=== PATIENT | male | born 1980 | race Caucasian/White ===

== ENCOUNTER 2017-05-31 21:52 | Emergency (ER) | payer OTHER ==
[2017-05-31] MEDS ORDERED: LIDOCAINE 1% INJ-PF (10 MG/ML) 30 ML SDV ONE (23:39)
[2017-05-31] MEDS ORDERED: ONDANSETRON 4 MG TAB.RAPDIS PO ONE (23:49)
[2017-05-31] MEDS ORDERED: IBUPROFEN 600 MG TABLET PO ONE (23:49)
[2017-05-31] MEDS ORDERED: MORPHINE SULFATE IR 15 MG TABLET PO ONE (23:49)
[2017-05-31] MEDS ORDERED: ACETAMINOPHEN 325 MG TABLET PO ONE (23:49)
[2017-05-31] MEDS ORDERED: LIDOCAINE 1%/EPINEPHRINE INJ 20 ML VIAL INJ ONE (23:50)
[2017-05-31] MEDS ORDERED: CLINDAMYCIN HCL 150 MG CAPSULE PO ONE (23:50)
[2017-05-31] MEDS ORDERED: DEXAMETHASONE 4 MG TABLET PO ONE (23:55)
--- NOTE | 2017-05-31 23:55 | ER Document Report ---
ED General - General Chief Complaint: Facial Swelling Stated Complaint: TOOTHACHE Time Seen by Provider: 05/31/17 23:17 Notes: Patient is there are 36-year-old male visiting from out of town who presents with 48 hours of progressively worsening swelling and pain to the right side of his face from a dental infection. Patient notes that he had a dental infection for the past several days, is scheduled to see a dentist when he returns to [place] but that several days ago he began to develop facial swelling, difficulty opening his mouth and severely worsening pain to the affected areas. He notes a dull, constant, throbbing pain that is worsened by any attempt to eating or drinking. He has not tried anything to improve his symptoms. He denies a history of similar symptoms in the past. He denies any difficulty breathing or swallowing, and denies any headache, confusion or fever. TRAVEL OUTSIDE OF THE [place] IN LAST 30 DAYS: No - Related Data Allergies/Adverse Reactions: No Known Allergies Allergy (Verified 11/18/15 16:14) Past Medical History - General Information source: Patient - Social History Smoking Status: Current Every Day Smoker Frequency of alcohol use: None Drug Abuse: None Lives with: Family Family History: Reviewed & Not Pertinent Renal/ Medical History: Reports: Hx Kidney Stones Psychiatric Medical History: Reports: Hx Bipolar Disorder - Immunizations Hx Diphtheria, Pertussis, Tetanus Vaccination: Yes Review of Systems - Review of Systems Notes: Constitutional: Negative for fever. HENT: Positive for right-sided facial swelling and poor dentition Eyes: Negative for visual changes. Cardiovascular: Negative for chest pain. Respiratory: Negative for shortness of breath. Gastrointestinal: Negative for abdominal pain, vomiting or diarrhea. Genitourinary: Negative for dysuria. Musculoskeletal: Negative for back pain. Skin: Negative for rash. Neurological: Negative for headaches, weakness or numbness. 10 point ROS negative except as marked above and in HPI. Physical Exam - Vital signs Vitals: Temp Pulse Resp BP Pulse Ox 98.1 F 87 16 129/89 H 100 05/31/17 22:22 05/31/17 22:22 05/31/17 22:22 05/31/17 22:22 05/31/17 22:22 Interpretation: Normal Notes: PHYSICAL EXAMINATION: GENERAL: Appears uncomfortable but in no acute distress HEAD: Atraumatic, normocephalic. EYES: Pupils equal round and reactive to light, extraocular movements intact, sclera anicteric, conjunctiva are normal. ENT: nares patent, poor dentition throughout. There is mild swelling over the right cheek. No narrowing of the posterior pharynx. There is an apical abscess overlying tooth #4. NECK: Normal range of motion, supple without lymphadenopathy LUNGS: Breath sounds clear to auscultation bilaterally and equal. No wheezes rales or rhonchi. HEART: Regular rate and rhythm without murmurs ABDOMEN: Soft, nontender, normoactive bowel sounds. No guarding, no rebound. No masses appreciated. EXTREMITIES: Normal range of motion, no pitting or edema. No cyanosis. NEUROLOGICAL: No focal neurological deficits. Moves all extremities spontaneously and on command. PSYCH: Normal mood, normal affect. SKIN: Warm, Dry, normal turgor, no rashes or lesions noted. Course - Re-evaluation Re-evalutation: 05/31/17 23:54 Patient presents with facial swelling and an obvious apical abscess overlying tooth #4. The patient has poor dentition throughout, multiple missing teeth and virtually all of his remaining teeth have deep dental caries and partial fractures. There is no evidence of airway compromise, patient was able to speak in clear voice, no difficulty swallowing. The apical abscess was anesthetized with 1% lidocaine and then opened with an 18-gauge needle. Approximately 5 cc of purulent expression was obtained. Patient will be started on clindamycin for the next 10 days and has been clearly instructed on the need to follow-up closely with dentistry. Strict return precautions have been discussed at length. At this time will discharge with return precautions and follow-up recommendations. Verbal discharge instructions given a the bedside and opportunity for questions given. Medication warnings reviewed. Patient is in agreement with this plan and has verbalized understanding of return precautions and the need for dentistry follow-up in the next 24-72 hours. - Vital Signs Vital signs: Temp Pulse Resp BP Pulse Ox 98.1 F 83 18 146/90 H 100 05/31/17 22:22 06/01/17 00:19 06/01/17 00:19 06/01/17 00:19 06/01/17 00:19 Procedures - Incision and Drainage Dental abscess Type: Simple Anesthetic type: 1% Lidocaine mL's of anesthetic: 1 Blade size: Other - 18-gauge needle Incision Method: Incision made with needle Amount/type of drainage: 5 cc of purulent expression from an apical abscess overlying tooth #4 Discharge - Discharge Clinical Impression: Apical abscess, Dental caries, Facial swelling Condition: Good Disposition: HOME, SELF-CARE Additional Instructions: Your seen today for a dental infection with an associated dental abscess. The abscess was drained with a needle take antibiotics and have your dentist remove all of your upper teeth as they are all infected. Please take all the antibiotics until completion. You may use the Zofran that you have been sent home with as needed for nausea and the Cucumber for pain. In addition to the Cucumber please take ibuprofen 600 mg every 6 hours. Apply an ice pack to the affected area of your face 20 minutes every 2 hours to help reduce the swelling and pain. Return to the emergency department immediately if you develop a fever , difficulty breathing, difficulty swallowing, worsening of your facial swelling , progressive worsening of your pain, or any other symptoms that are worrisome to you. Prescriptions: Clindamycin HCl 300 mg PO TID #30 capsule
[2017-06-01 00:34] VITALS: BP 146/90
== END 2017-06-01 00:34 | disposition home or self-care (01) ==
LOC: ER 21:52
PROC: 0C9WXZ0 Drainage of Upper Tooth, External Approach, Single (ICD-10-PCS; principal; 2017-05-31)
DX: K04.7 Periapical abscess without sinus (principal); K02.9 Dental caries, unspecified; F17.200 Nicotine dependence, unspecified, uncomplicated; Z87.442 Personal history of urinary calculi
CPT/HCPCS: 99283; 41800; S0119; J3490

== ENCOUNTER 2017-08-22 13:33 | Inpatient (IN) | payer OTHER ==
[2017-08-22] MEDS ORDERED: NORMAL SALINE 1000 ML 1,000 ML IV ONE ×2 (14:42→16:50)
[2017-08-22] MEDS ORDERED: ONDANSETRON 4 MG TAB.RAPDIS PO ONE (14:43)
--- NOTE | 2017-08-22 14:45 | ER Document Report ---
ED General - General Chief Complaint: Nausea/Vomiting Stated Complaint: VOMITING Time Seen by Provider: 08/22/17 14:42 Mode of Arrival: Ambulatory Information source: Patient Notes: 36-year-old male presents emergency department with complaints of nausea, vomiting, diffuse muscle cramping. Patient states that this is been going on for the last day. Patient thought he was dehydrated and so he started consuming increased fluids. Patient states that he is still having the nausea and vomiting. He denies any chest pain, shortness of breath, abdominal pain, diarrhea, constipation. He denies any sick contacts. Patient denies any past medical history. He is not on any medications. TRAVEL OUTSIDE OF THE [place] IN LAST 30 DAYS: No - HPI Onset: Yesterday Onset/Duration: Gradual Quality of pain: No pain Severity: None Pain Level: Denies Associated symptoms: Nausea, Vomiting Exacerbated by: Denies Relieved by: Denies Similar symptoms previously: No Recently seen / treated by doctor: No - Related Data Allergies/Adverse Reactions: No Known Allergies Allergy (Verified 08/22/17 13:34) Past Medical History - Social History Smoking Status: Current Every Day Smoker Family History: Reviewed & Not Pertinent Renal/ Medical History: Reports: Hx Kidney Stones Psychiatric Medical History: Reports: Hx Bipolar Disorder - Immunizations Hx Diphtheria, Pertussis, Tetanus Vaccination: Yes Review of Systems - Review of Systems Constitutional: No symptoms reported EENT: No symptoms reported Cardiovascular: No symptoms reported Respiratory: No symptoms reported Gastrointestinal: Nausea, Vomiting Genitourinary: No symptoms reported Male Genitourinary: No symptoms reported Musculoskeletal: Muscle pain Skin: No symptoms reported Hematologic/Lymphatic: No symptoms reported Neurological/Psychological: No symptoms reported -: Yes All other systems reviewed and negative Physical Exam - Vital signs Vitals: Temp Pulse Resp BP Pulse Ox 99.1 F 102 H 22 H 130/84 H 95 08/22/17 13:38 08/22/17 13:38 08/22/17 13:38 08/22/17 13:38 08/22/17 13:38 Interpretation: Normal, Tachycardic - Notes Notes: PHYSICAL EXAMINATION: GENERAL: Well-appearing, well-nourished and in no acute distress. HEAD: Atraumatic, normocephalic. EYES: Pupils equal round and reactive to light, extraocular movements intact, sclera anicteric, conjunctiva are normal. ENT: Nares patent, oropharynx clear without exudates. Moist mucous membranes. NECK: Normal range of motion, supple without lymphadenopathy LUNGS: Breath sounds clear to auscultation bilaterally and equal. No wheezes rales or rhonchi. HEART: Regular rate and rhythm without murmurs ABDOMEN: Soft, nontender, nondistended abdomen. No guarding, no rebound. No masses appreciated. Musculoskeletal: Normal range of motion, no pitting or edema. No cyanosis. NEUROLOGICAL: Cranial nerves grossly intact. Normal speech, normal gait. Normal sensory, motor exams PSYCH: Normal mood, normal affect. SKIN: Warm, Dry, normal turgor, no rashes or lesions noted. Course - Vital Signs Vital signs: Temp Pulse Resp BP Pulse Ox 97.5 F 64 16 136/91 H 100 08/22/17 17:25 08/22/17 17:25 08/22/17 17:25 08/22/17 17:25 08/22/17 17:25 - Laboratory Result Diagrams: 08/22/17 15:15 08/22/17 16:05 Laboratory results interpreted by me: 08/22/17 08/22/17 08/22/17 15:15 16:05 16:05 Hgb 17.7 H Hct 51.7 H MCV 100 H MCH 34.2 H RDW 17.4 H Plt Count 127 L Sodium 145.9 H Chloride 97 L BUN 24 H Creatinine 2.46 H Est GFR ( Amer) 36 L Est GFR (Non-Af Amer) 30 L Phosphorus Total Bilirubin 1.4 H Direct Bilirubin 0.7 H AST 202 H ALT 213 H Creatine Kinase 195 H Total Protein 9.6 H Salicylates < 1.0 L Acetaminophen < 10 L 08/22/17 16:05 Hgb Hct MCV MCH RDW Plt Count Sodium Chloride BUN Creatinine Est GFR ( Amer) Est GFR (Non-Af Amer) Phosphorus 6.2 H Total Bilirubin Direct Bilirubin AST ALT Creatine Kinase Total Protein Salicylates Acetaminophen Discharge - Discharge Clinical Impression: Thrombocytopenia, Elevated liver enzymes Renal failure Qualifiers: Renal failure chronicity: acute Acute renal failure type: unspecified Qualified Code(s): N17.9 - Acute kidney failure, unspecified Condition: Stable Disposition: ADMITTED INPATIENT Admitting Provider: Hospitalist Unit Admitted: Telemetry
[2017-08-22 15:33] LABS: ABSOLUTE LYMPHOCYTES (AUTO) 1.2 10^3/uL (0.5-4.7); ABSOLUTE MONOCYTES (AUTO) 0.6 10^3/uL (0.1-1.4); ABSOLUTE NEUT (AUTO) 4.1 10^3/uL (1.7-8.2); BASOPHILS % (AUTO) 0.8 % (0-2); EOSINOPHILS % (AUTO) 0.1 % (0-6); HEMATOCRIT 51.7 % (37.9-51.0); HEMOGLOBIN 17.7 g/dL (13.5-17.0); MEAN CORPUSCULAR HEMOGLOBIN 34.2 pg (27.0-33.4); MEAN CORPUSCULAR HGB CONC 34.3 g/dL (32.0-36.0); MEAN CORPUSCULAR VOLUME 100 fl (80-97); MONOCYTES % (AUTO) 9.4 % (3-13); RED BLOOD COUNT 5.18 10^6/uL (4.35-5.55); RED CELL DISTRIBUTION WIDTH 17.4 % (11.5-14.0); SEGMENTED NEUTROPHILS % (AUTO) 69.7 % (42-78); TOTAL CELLS COUNTED % (AUTO) 100 %; WHITE BLOOD COUNT 5.9 10^3/uL (4.0-10.5)
[2017-08-22 15:50] LABS: PLATELET COUNT 127 10^3/uL (150-450)
[2017-08-22 16:42] LABS: ALANINE AMINOTRANSFERASE 213 U/L (21-72); ALKALINE PHOSPHATASE 91 U/L (38-126); ANION GAP 19 (5-19); ASPARTATE AMINO TRANSFERASE 202 U/L (17-59); BILIRUBIN,DIRECT 0.7 mg/dL (0.0-0.4); BILIRUBIN,TOTAL 1.4 mg/dL (0.2-1.3); BLOOD UREA NITROGEN 24 mg/dL (7-20); CALCIUM 10.1 mg/dL (8.4-10.2); CARBON DIOXIDE 30 mmol/L (22-30); CHLORIDE 97 mmol/L (98-107); CREATINE KINASE 195 U/L (55-170); GLUCOSE 86 mg/dL (75-110); LIPASE 289.1 U/L (23-300); POTASSIUM 4.4 mmol/L (3.6-5.0); SODIUM 145.9 mmol/L (137-145); TOTAL PROTEIN 9.6 g/dL (6.3-8.2)
[2017-08-22] MEDS ORDERED: MAG HYDROX/AL HYDROX/SIMETH SUSP 30 ML UDCUP PO PRN (17:25)
[2017-08-22] MEDS ORDERED: IPRATROPIUM/ALBUTEROL 0.5-2.5 MG/3 ML AMPUL NEB PRN (17:25)
[2017-08-22] MEDS ORDERED: MAGNESIUM HYDROXIDE SUSP 30 ML UDCUP PO PRN (17:25)
[2017-08-22] MEDS ORDERED: METOCLOPRAMIDE HCL INJ/PF 10 MG/2 ML SDV IV ONE (17:25)
[2017-08-22] MEDS ORDERED: DIAZEPAM INJ 10 MG/2 ML DISP.SYRIN IV ONE (17:25)
[2017-08-22 17:45] LABS: PHOSPHORUS 6.2 mg/dL (2.5-4.5)
[2017-08-22 17:46] LABS: PROTHROMBIN TIME 13.7 SEC (11.4-15.4)
[2017-08-22 17:48] LABS: ACETAMINOPHEN < 10 ug/mL (10-30); ALCOHOL < 10 mg/dL (NONE DETECTED); SALICYLATE < 1.0 mg/dL (2.0-20.0)
[2017-08-22] MEDS ORDERED: LORAZEPAM INJ 2 MG/1 ML VIAL IV PRN (19:02)
[2017-08-22] MEDS ORDERED: NICOTINE 14 MG/24 HR PATCH.TD24 TD PRN (19:43)
[2017-08-22] MEDS ORDERED: THIAMINE HCL 100 MG, FOLIC ACID 1 MG in NORMAL SALINE 250 ML IV SCH (20:00)
[2017-08-22] MEDS: HEPARIN SOD (PORCINE) 5,000 UNIT/ML 1 ML SYRINGE SUBCUT SCH (21:01)
[2017-08-22] MEDS: DEXTROSE 5%-1/2 NORMAL SALINE 1,000 ML IV PRN (22:20)
[2017-08-22] MEDS: DOCUSATE SODIUM 100 MG CAPSULE PO SCH (22:20)
[2017-08-22] MEDS: DIAZEPAM 5 MG TABLET PO PRN (22:32)
[2017-08-23] MEDS: IPRATROPIUM/ALBUTEROL 0.5-2.5 MG/3 ML AMPUL NEB SCH ×4 (00:04→23:36)
--- NOTE | 2017-08-23 03:08 | PDOC H&P ---
History of Present Illness Admission Date/PCP: 08/22/17 18:11 Patient complains of: Muscle cramping, nausea vomiting History of Present Illness: AYDEE COLLIER is a 36 year old male with a past medical history of bipolar formally on trazodone, lithium and alcohol dependence. Patient presents after 24 hours of excessive work related heat exposure resulting in fatigue, nausea with vomiting of gastric content and muscle cramping. Patient is unable to tolerate p.o. prompting seek evaluation emergency room where he is found to have dehydration, hypernatremia and acute renal failure. He receives symptomatic management, and IV fluid challenge and referred to the hospitalist for admission. Patient denies recent medication use, excessive caffeine or energy drinks but admits ongoing alcohol dependence of 120 ounces of malt liquor per day. Past Medical History Psychiatric Medical History: Reports: Alcohol Dependency, Bipolar Disorder Social History Information Source: Patient, [facility] Records Smoking Status: Current Every Day Smoker Cigarettes Packs Per Day: 1 Number of Years Smokin Frequency of Alcohol Use: Heavy Hx Recreational Drug Use: Yes Drugs: Marijuana Hx Prescription Drug Abuse: No - Advance Directive Resuscitation Status: Full Code Family History Family History: Hypertension Parental Family History Reviewed: Yes Children Family History Reviewed: Yes Sibling(s) Family History Reviewed.: Yes Medication/Allergy Home Medications: Ranitidine HCl [Heartburn Relief 150] 150 mg PO BIDP PRN 08/22/17 Allergies/Adverse Reactions: No Known Allergies Allergy (Verified 08/22/17 19:42) Review of Systems Constitutional: ABSENT: chills, fever(s), headache(s), weight gain, weight loss Eyes: ABSENT: visual disturbances Ears: ABSENT: hearing changes Cardiovascular: ABSENT: chest pain, dyspnea on exertion, edema, orthropnea, palpitations Respiratory: ABSENT: cough, hemoptysis Gastrointestinal: ABSENT: abdominal pain, constipation, diarrhea, hematemesis, hematochezia, nausea, vomiting Genitourinary: ABSENT: dysuria, hematuria Musculoskeletal: ABSENT: joint swelling Integumentary: ABSENT: rash, wounds Neurological: ABSENT: abnormal gait, abnormal speech, confusion, dizziness, focal weakness, syncope Psychiatric: ABSENT: anxiety, depression, homidical ideation, suicidal ideation Endocrine: ABSENT: cold intolerance, heat intolerance, polydipsia, polyuria Hematologic/Lymphatic: ABSENT: easy bleeding, easy bruising Physical Exam Vital Signs: Temp Pulse Resp BP Pulse Ox 98.3 F 62 16 125/87 H 98 08/22/17 20:01 08/23/17 00:05 08/23/17 00:05 08/22/17 20:01 08/22/17 20:01 Intake & Output 08/21/17 08/22/17 08/23/17 11:59 11:59 11:59 Weight 75.7 kg General appearance: PRESENT: no acute distress, cooperative, well-developed, well-nourished. ABSENT: disheveled, hard of hearing Head exam: PRESENT: atraumatic, normocephalic Eye exam: PRESENT: conjunctiva pink, EOMI, PERRLA. ABSENT: scleral icterus Ear exam: PRESENT: normal external ear exam Mouth exam: PRESENT: dry mucosa, neck supple, tongue midline. ABSENT: laceration Teeth exam: ABSENT: dental caries, dental tenderness Neck exam: ABSENT: carotid bruit, JVD, lymphadenopathy, thyromegaly Respiratory exam: PRESENT: chest wall tenderness, clear to auscultation denisse, tachypnea. ABSENT: rales, rhonchi, wheezes Cardiovascular exam: PRESENT: RRR, tachycardia. ABSENT: diastolic murmur, rubs , systolic murmur Pulses: PRESENT: normal dorsalis pedis pul Vascular exam: PRESENT: normal capillary refill GI/Abdominal exam: PRESENT: normal bowel sounds, soft. ABSENT: distended, guarding, mass, organolmegaly, rebound, tenderness Rectal exam: PRESENT: deferred Extremities exam: PRESENT: full ROM. ABSENT: calf tenderness, clubbing, pedal edema Neurological exam: PRESENT: alert, awake, oriented to person, oriented to place , oriented to time, oriented to situation, CN II-XII grossly intact. ABSENT: motor sensory deficit Psychiatric exam: PRESENT: appropriate affect, normal mood. ABSENT: homicidal ideation, suicidal ideation Skin exam: PRESENT: dry, intact, warm. ABSENT: cyanosis, rash Results Laboratory Results: 08/22/17 08/23/17 20:19 02:05 Creatine Kinase 181 H 157 Assessment & Plan - Diagnosis (1) Renal failure Qualifiers: Renal failure chronicity: acute Acute renal failure type: unspecified Qualified Code(s): N17.9 - Acute kidney failure, unspecified Is this a current diagnosis for this admission?: Yes Plan: Unclear cause, follow-up urinalysis, total CK, avoid nephrotoxic meds and doses , IV fluid challenge. (2) Alcohol dependence Is this a current diagnosis for this admission?: Yes Plan: Thiamine, folate, benzodiazepine as needed, discharge planning for rehab referral (3) Elevated liver enzymes Is this a current diagnosis for this admission?: Yes Plan: Unclear cause, follow-up a.m. LFTs, avoid hepatotoxic meds and doses consider outpatient GI follow-up. (4) Thrombocytopenia Is this a current diagnosis for this admission?: Yes Plan: Most likely secondary to alcohol dependence. Follow-up a.m. CBC. Supportive care
[2017-08-23] MEDS ORDERED: LORAZEPAM INJ 2 MG/1 ML VIAL IV PRN (03:34)
[2017-08-23] MEDS ORDERED: NORMAL SALINE 1000 ML 1,000 ML IV PRN (03:40)
[2017-08-23 03:45] LABS: AMORPHOUS SEDIMENT,URINE TRACE /HPF; APPEARANCE,URINE TURBID; BILIRUBIN,URINE NEGATIVE (NEGATIVE); GLUCOSE, URINE NEGATIVE (NEGATIVE); KETONES,URINE NEGATIVE (NEGATIVE); LEUKOCYTE ESTERASE,URINE NEGATIVE (NEGATIVE); NITRITE,URINE NEGATIVE (NEGATIVE); PROTEIN,URINE NEGATIVE (NEGATIVE); URINE SPECIFIC GRAVITY 1.025
[2017-08-23 03:46] LABS: COLOR,URINE DARK YELLOW
[2017-08-23 03:56] LABS: URINE AMPHETAMINES SCREEN NEGATIVE; URINE BARBITURATES SCREEN NEGATIVE; URINE COCAINE SCREEN NEGATIVE; URINE METHADONE SCREEN NEGATIVE; URINE PHENCYCLIDINE SCREEN NEGATIVE
[2017-08-23 04:02] LABS: URINE BENZODIAZEPINES SCREEN UNCONFIRMED POSITIVE; URINE MARIJUANA (THC) SCREEN UNCONFIRMED POSITIVE
[2017-08-23] MEDS: HEPARIN SOD (PORCINE) 5,000 UNIT/ML 1 ML SYRINGE SUBCUT SCH ×3 (04:51→21:39)
[2017-08-23] MEDS: 1/2 NORMAL SALINE 1,000 ML IV PRN ×2 (05:15→11:20)
[2017-08-23 08:58] LABS: ABSOLUTE LYMPHOCYTES (AUTO) 1.4 10^3/uL (0.5-4.7); ABSOLUTE MONOCYTES (AUTO) 0.2 10^3/uL (0.1-1.4); ABSOLUTE NEUT (AUTO) 1.4 10^3/uL (1.7-8.2); BASOPHILS % (AUTO) 0.4 % (0-2); EOSINOPHILS % (AUTO) 0.3 % (0-6); HEMATOCRIT 40.9 % (37.9-51.0); LYMPHOCYTES % (AUTO) 46.9 % (13-45); MEAN CORPUSCULAR HEMOGLOBIN 34.6 pg (27.0-33.4); MEAN CORPUSCULAR HGB CONC 34.2 g/dL (32.0-36.0); MEAN CORPUSCULAR VOLUME 101 fl (80-97); MONOCYTES % (AUTO) 7.9 % (3-13); PLATELET COUNT 100 10^3/uL (150-450); RED BLOOD COUNT 4.05 10^6/uL (4.35-5.55); RED CELL DISTRIBUTION WIDTH 16.4 % (11.5-14.0); SEGMENTED NEUTROPHILS % (AUTO) 44.5 % (42-78); TOTAL CELLS COUNTED % (AUTO) 100 %; WHITE BLOOD COUNT 3.1 10^3/uL (4.0-10.5)
[2017-08-23 09:17] LABS: ALANINE AMINOTRANSFERASE 149 U/L (21-72); ALKALINE PHOSPHATASE 57 U/L (38-126); ANION GAP 10 (5-19); ASPARTATE AMINO TRANSFERASE 163 U/L (17-59); BILIRUBIN,DIRECT 0.5 mg/dL (0.0-0.4); BILIRUBIN,TOTAL 1.4 mg/dL (0.2-1.3); BLOOD UREA NITROGEN 17 mg/dL (7-20); CALCIUM 8.3 mg/dL (8.4-10.2); CARBON DIOXIDE 28 mmol/L (22-30); CHLORIDE 100 mmol/L (98-107); CREATINE KINASE 127 U/L (55-170); GLUCOSE 74 mg/dL (75-110)
[2017-08-23] MEDS: DOCUSATE SODIUM 100 MG CAPSULE PO SCH ×2 (09:31→17:17)
[2017-08-23] MEDS ORDERED: THIAMINE HCL 100 MG, FOLIC ACID 1 MG in NORMAL SALINE 250 ML IV SCH (12:00)
--- NOTE | 2017-08-23 13:27 | PDOC PROGRESS REPORT ---
Subjective Progress Note for:: 08/23/17 Subjective:: No overnight events. Still feeling very weak but improving. Denies abdominal pain/N/V. Tolerating clear liquid, willing to advance. No other complaints. Agreeable with likely d/c tomorrow. Reason For Visit: ARF/ETOH WITHDAWL/SZ Physical Exam Vital Signs: Temp Pulse Resp BP Pulse Ox 97.8 F 72 16 102/73 97 08/23/17 11:25 08/23/17 11:25 08/23/17 11:25 08/23/17 11:25 08/23/17 11:25 Intake & Output 08/22/17 08/23/17 08/24/17 06:59 06:59 06:59 Intake Total 2678 Balance 2678 Weight 75.7 kg General appearance: PRESENT: no acute distress, cooperative, well-developed, well-nourished Head exam: PRESENT: normocephalic Mouth exam: PRESENT: moist Respiratory exam: PRESENT: unlabored Cardiovascular exam: PRESENT: RRR. ABSENT: tachycardia GI/Abdominal exam: PRESENT: soft. ABSENT: tenderness Musculoskeletal exam: PRESENT: ambulatory Neurological exam: PRESENT: alert, awake, CN II-XII grossly intact Psychiatric exam: PRESENT: appropriate affect Results Laboratory Results: 08/23/17 08:21 08/23/17 08:21 08/23/17 08/23/17 08/23/17 03:15 08:21 08:21 WBC 3.1 L RBC 4.05 L Hgb 14.0 D Hct 40.9 MCV 101 H MCH 34.6 H MCHC 34.2 RDW 16.4 H Plt Count 100 L Seg Neutrophils % 44.5 Lymphocytes % 46.9 H Monocytes % 7.9 Eosinophils % 0.3 Basophils % 0.4 Absolute Neutrophils 1.4 L Absolute Lymphocytes 1.4 Absolute Monocytes 0.2 Absolute Eosinophils 0.0 Absolute Basophils 0.0 Sodium 138.0 Potassium 4.0 Chloride 100 Carbon Dioxide 28 Anion Gap 10 BUN 17 Creatinine 0.97 Est GFR ( Amer) > 60 Est GFR (Non-Af Amer) > 60 Glucose 74 L Calcium 8.3 L Total Bilirubin 1.4 H AST 163 H ALT 149 H Alkaline Phosphatase 57 Total Protein 6.0 L Albumin 3.0 L Urine Color DARK YELLOW Urine Appearance TURBID Urine pH 5.0 Ur Specific Dunbar 1.025 Urine Protein NEGATIVE Urine Glucose (UA) NEGATIVE Urine Ketones NEGATIVE Urine Blood NEGATIVE Urine Nitrite NEGATIVE Ur Leukocyte Esterase NEGATIVE Urine WBC (Auto) 20 Urine RBC (Auto) 5 08/22/17 08/23/17 08/23/17 20:19 02:05 08:21 Creatine Kinase 181 H 157 127 Assessment & Plan - Diagnosis (1) Dehydration Is this a current diagnosis for this admission?: Yes Plan: Unclear precipitating factor. Could be heat exposure vs. viral GE. Patient has long standing etOH use however denies excessive drinking recently. Clinically improving with IVF. GENEVA has improved. LFTs/hypernatremia improving as well. - Continue IVF - Advance diet as tolerated, started full liquids for lunch - Conservative management and symptom control as needed (2) Alcohol dependence Qualifiers: Substance use status: uncomplicated Qualified Code(s): F10.20 - Alcohol dependence, uncomplicated Is this a current diagnosis for this admission?: Yes Plan: Current daily EtoH use. patient has a history of heavy EtOH use in the past. States that he has cut down significantly. Denies recent hospitalizations that were alcohol related. No history of w/d seizures. Denies active symptoms. - CTM for w/d - Has Ativan and Valium ordered PRN. Not requiring. (3) Elevated liver enzymes Is this a current diagnosis for this admission?: Yes Plan: May be related to dehydration. Likely component of chronic EtOh use as well. - Continues to downtrend. Re-check in AM (4) Renal failure Qualifiers: Renal failure chronicity: acute Acute renal failure type: unspecified Qualified Code(s): N17.9 - Acute kidney failure, unspecified Is this a current diagnosis for this admission?: Yes Plan: Improving, Cr 0.97 on 08/23. UOP adequate. - CTM (5) Thrombocytopenia Is this a current diagnosis for this admission?: Yes Plan: Likely chronic from EtOH use. No active bleeding. - Time Time Spent with patient: Less than 15 minutes Anticipated discharge: Home Within: within 24 hours
[2017-08-23] MEDS: DEXTROSE 5%-1/2 NORMAL SALINE 1,000 ML IV PRN (17:17)
[2017-08-23] MEDS: DIAZEPAM 5 MG TABLET PO PRN (21:45)
[2017-08-24] MEDS: HEPARIN SOD (PORCINE) 5,000 UNIT/ML 1 ML SYRINGE SUBCUT SCH (05:03)
[2017-08-24 06:27] LABS: HEMATOCRIT 39.8 % (37.9-51.0); HEMOGLOBIN 13.6 g/dL (13.5-17.0); MEAN CORPUSCULAR HEMOGLOBIN 34.5 pg (27.0-33.4); MEAN CORPUSCULAR HGB CONC 34.1 g/dL (32.0-36.0); MEAN CORPUSCULAR VOLUME 101 fl (80-97); RED BLOOD COUNT 3.93 10^6/uL (4.35-5.55); RED CELL DISTRIBUTION WIDTH 16.1 % (11.5-14.0); WHITE BLOOD COUNT 2.7 10^3/uL (4.0-10.5)
[2017-08-24 06:40] LABS: ALANINE AMINOTRANSFERASE 141 U/L (21-72); ALBUMIN 2.9 g/dL (3.5-5.0); ALKALINE PHOSPHATASE 59 U/L (38-126); ANION GAP 10 (5-19); ASPARTATE AMINO TRANSFERASE 180 U/L (17-59); BILIRUBIN,DIRECT 0.4 mg/dL (0.0-0.4); BILIRUBIN,TOTAL 1.2 mg/dL (0.2-1.3); BLOOD UREA NITROGEN 11 mg/dL (7-20); CARBON DIOXIDE 24 mmol/L (22-30); CHLORIDE 104 mmol/L (98-107); GLUCOSE 85 mg/dL (75-110); POTASSIUM 4.1 mmol/L (3.6-5.0); SODIUM 137.6 mmol/L (137-145); TOTAL PROTEIN 5.9 g/dL (6.3-8.2)
[2017-08-24 07:16] LABS: PLATELET COUNT 91 10^3/uL (150-450)
[2017-08-24] MEDS: IPRATROPIUM/ALBUTEROL 0.5-2.5 MG/3 ML AMPUL NEB SCH (08:16)
[2017-08-24] MEDS: DOCUSATE SODIUM 100 MG CAPSULE PO SCH (09:21)
[2017-08-24 10:46] VITALS: BP 119/80
--- NOTE | 2017-08-24 14:12 | PDOC DISCHARGE SUMMARY ---
General - Admit/Disc Date/PCP Admission Date/Primary Care Provider: 08/22/17 18:11 Discharge Date: 08/24/17 - Discharge Diagnosis (1) Dehydration Is this a current diagnosis for this admission?: Yes Summary: Improved on day of discharge. Unclear precipitating factor. Could be heat exposure vs. viral GE. Patient has long standing etOH use however denies excessive drinking recently. Clinically improved with IVF. GENEVA has resolved. LFTs/hypernatremia improving as well. Counseled about adequate fluid intake and minimizing alcohol use. (2) Alcohol dependence Is this a current diagnosis for this admission?: Yes Summary: Current daily EtoH use. patient has a history of heavy EtOH use in the past. States that he has cut down significantly. Denies recent hospitalizations that were alcohol related. No history of w/d seizures. Denies active symptoms. Patient had no withdrawal symptoms during admission and did not require PRN Ativan or Valium. Outpatient management - Script given for Thiamine 100mg PO daily - Advised to cut back on EtOH use - Should follow with PCP and/or hepatology regarding elevated LFTs and further work up (3) Elevated liver enzymes Is this a current diagnosis for this admission?: Yes Summary: Downtrended however remain elevated. Needs further outpatient work up per above (4) Renal failure Is this a current diagnosis for this admission?: Yes Summary: Resolved. Likely pre-renal from dehydration. (5) Thrombocytopenia Is this a current diagnosis for this admission?: Yes Summary: Likely chronic from EtOH use. No active bleeding. (6) Tobacco abuse counseling Is this a current diagnosis for this admission?: Yes Summary: Counseling provided. Nicotene patch was ordered however patient refused - States "I plan to smoke a cigarette as soon as I get out of here" - Quitline [place] info given in discharge paperwork - Additional Information Resuscitation Status: Full Code Discharge Diet: As Tolerated Discharge Activity: Activity As Tolerated Prescriptions: Nicotine [Nicoderm 14 mg/24 Hr Transdermal Patch] 1 each TD DAILYP PRN #30 patch.td24 PRN Reason: Thiamine HCl [Thiamine 100 mg Tablet] 100 mg PO DAILY #30 tablet Home Medications: Ranitidine HCl [Heartburn Relief 150] 150 mg PO BIDP PRN 08/22/17 Nicotine [Nicoderm 14 mg/24 Hr Transdermal Patch] 1 each TD DAILYP PRN #30 patch.td24 08/24/17 Thiamine HCl [Thiamine 100 mg Tablet] 100 mg PO DAILY #30 tablet 08/24/17 History of Present Illness History of Present Illness: AYDEE COLLIER is a 36 year old male with a past medical history of bipolar formally on trazodone, lithium and alcohol dependence. Patient presents after 24 hours of excessive work related heat exposure resulting in fatigue, nausea with vomiting of gastric content and muscle cramping. Patient is unable to tolerate p.o. prompting seek evaluation emergency room where he is found to have dehydration, hypernatremia and acute renal failure. He receives symptomatic management, and IV fluid challenge and referred to the hospitalist for admission. Patient denies recent medication use, excessive caffeine or energy drinks but admits ongoing alcohol dependence of 120 ounces of malt liquor per day. Physical Exam Vital Signs: Temp Pulse Resp BP Pulse Ox 98.4 F 61 18 119/80 95 08/24/17 10:45 08/24/17 10:45 08/24/17 10:45 08/24/17 10:45 08/24/17 10:45 Intake & Output 08/23/17 08/24/17 08/25/17 06:59 06:59 06:59 Intake Total 2678 600 Balance 2678 600 Weight 75.7 kg 75.4 kg General appearance: PRESENT: no acute distress, cooperative, well-developed, well-nourished Head exam: PRESENT: normocephalic Mouth exam: PRESENT: moist Respiratory exam: PRESENT: unlabored. ABSENT: tachypnea Cardiovascular exam: PRESENT: RRR. ABSENT: tachycardia GI/Abdominal exam: PRESENT: soft. ABSENT: tenderness Neurological exam: PRESENT: alert, awake, CN II-XII grossly intact Psychiatric exam: PRESENT: appropriate affect Skin exam: PRESENT: dry, intact. ABSENT: jaundice Results Laboratory Results: 08/24/17 05:15 08/24/17 05:15 08/24/17 08/24/17 05:15 05:15 WBC 2.7 L RBC 3.93 L Hgb 13.6 Hct 39.8 MCV 101 H MCH 34.5 H MCHC 34.1 RDW 16.1 H Plt Count 91 L Sodium 137.6 Potassium 4.1 Chloride 104 Carbon Dioxide 24 Anion Gap 10 BUN 11 Creatinine 0.76 Est GFR ( Amer) > 60 Est GFR (Non-Af Amer) > 60 Glucose 85 Calcium 8.0 L Total Bilirubin 1.2 AST 180 H ALT 141 H Alkaline Phosphatase 59 Total Protein 5.9 L Albumin 2.9 L 08/22/17 08/23/17 08/23/17 20:19 02:05 08:21 Creatine Kinase 181 H 157 127 Qualifiers - * PATIENT BEING DISCHARGED WITH ANY OF THE FOLLOWING DIAGNOSIS: No Plan Time Spent: Less than 30 Minutes
== END 2017-08-24 10:30 | disposition home or self-care (01) | DRG 683 ==
LOC: ER 13:33 → EH 18:11 → 4N 19:25
PROVIDERS: ADMIT Internal Medicine; ATTEND Internal Medicine
PROC: 3E0F73Z Introduction of Anti-inflammatory into Respiratory Tract, Via Natural or Artificial Opening (ICD-10-PCS; principal; 2017-08-23)
DX: N17.9 Acute kidney failure, unspecified (principal); F10.239 Alcohol dependence with withdrawal, unspecified; E87.0 Hyperosmolality and hypernatremia; Y90.0 Blood alcohol level of less than 20 mg/100 ml; E86.0 Dehydration; D69.59 Other secondary thrombocytopenia; F17.210 Nicotine dependence, cigarettes, uncomplicated; F31.9 Bipolar disorder, unspecified; G40.909 Epilepsy, unspecified, not intractable, without status epilepticus; Z82.49 Family history of ischemic heart disease and other diseases of the circulatory system
CPT/HCPCS: 36415; 80048; 80053; 80076; 80307; 81001; 82550; 83690; 83735; 84100; 85025; 85027; 85610; 94640; 96360; 96361; 99285; J2060; J2765; J3411; J3490; J7030; J7050; J7620; S0119

== ENCOUNTER 2017-10-14 12:09 | Emergency (ER) | payer OTHER ==
[2017-10-14] MEDS ORDERED: NORMAL SALINE 1000 ML 1,000 ML IV ONE (12:20)
[2017-10-14] MEDS ORDERED: ONDANSETRON HCL INJ/PF 4 MG/2 ML SDV IV ONE (12:20)
[2017-10-14 13:01] LABS: ANION GAP 14 (5-19); BLOOD UREA NITROGEN 4 mg/dL (7-20); CALCIUM 8.6 mg/dL (8.4-10.2); CARBON DIOXIDE 24 mmol/L (22-30); CHLORIDE 104 mmol/L (98-107); GLUCOSE 137 mg/dL (75-110); POTASSIUM 3.2 mmol/L (3.6-5.0); SODIUM 141.5 mmol/L (137-145)
[2017-10-14 13:02] LABS: ALCOHOL < 10 mg/dL (NONE DETECTED)
[2017-10-14 13:59] LABS: ABSOLUTE LYMPHOCYTES (AUTO) 1.1 10^3/uL (0.5-4.7); ABSOLUTE MONOCYTES (AUTO) 0.2 10^3/uL (0.1-1.4); ABSOLUTE NEUT (AUTO) 1.5 10^3/uL (1.7-8.2); BASOPHILS % (AUTO) 0.6 % (0-2); EOSINOPHILS % (AUTO) 0.3 % (0-6); HEMATOCRIT 40.1 % (37.9-51.0); HEMOGLOBIN 13.6 g/dL (13.5-17.0); LYMPHOCYTES % (AUTO) 38.6 % (13-45); MEAN CORPUSCULAR HEMOGLOBIN 34.2 pg (27.0-33.4); MEAN CORPUSCULAR HGB CONC 33.9 g/dL (32.0-36.0); MEAN CORPUSCULAR VOLUME 101 fl (80-97); MONOCYTES % (AUTO) 6.3 % (3-13); PLATELET COUNT 140 10^3/uL (150-450); RED BLOOD COUNT 3.98 10^6/uL (4.35-5.55); RED CELL DISTRIBUTION WIDTH 16.1 % (11.5-14.0); SEGMENTED NEUTROPHILS % (AUTO) 54.2 % (42-78); TOTAL CELLS COUNTED % (AUTO) 100 %; WHITE BLOOD COUNT 2.7 10^3/uL (4.0-10.5)
[2017-10-14] MEDS ORDERED: METOCLOPRAMIDE HCL INJ/PF 10 MG/2 ML SDV IV ONE (14:02)
[2017-10-14 14:08] LABS: BLOOD UREA NITROGEN 4 mg/dL (7-20); CALCIUM 8.6 mg/dL (8.4-10.2); CARBON DIOXIDE 24 mmol/L (22-30); CHLORIDE 104 mmol/L (98-107); GLUCOSE 137 mg/dL (75-110); POTASSIUM 3.2 mmol/L (3.6-5.0)
[2017-10-14 14:09] LABS: ANION GAP 14 (5-19); SODIUM 141.5 mmol/L (137-145)
--- NOTE | 2017-10-14 14:36 | ER Document Report ---
ED Psych Disorder / Suicide - General Chief Complaint: Overdose Stated Complaint: POSSIBLE OVERDOSE Time Seen by Provider: 10/14/17 12:20 TRAVEL OUTSIDE OF THE U.S. IN LAST 30 DAYS: No - HPI Patient complains to provider of: Suicidal ideation, Suicidal plan, Other - This 36-year-old man presents for evaluation of overdose in the setting of a failed suicide attempt. He presents for evaluation after being found in a motel apneic and unresponsive, he also had been noted to have been drinking a heavy amount of alcohol. He received 2 mg of Narcan intranasally followed by a second 2 mg of Narcan intravenously at which time he began to breathe, he began to vomit violently. He notes that he is been heavily drinking every day, has no desire to continue living as he feels completely hopeless at this time. Has attempted to overdose in the past and was trying to harm himself this time. Has no medical complaints at this time. - Related Data Allergies/Adverse Reactions: No Known Allergies Allergy (Verified 08/22/17 19:42) Past Medical History - General Information source: Patient, Emergency Med Personnel - Social History Smoking Status: Current Every Day Smoker Frequency of alcohol use: None Drug Abuse: Heroin Family History: Hypertension Patient has suicidal ideation: Yes Patient has homicidal ideation: No Renal/ Medical History: Reports: Hx Kidney Stones. Denies: Hx Peritoneal Dialysis Psychiatric Medical History: Reports: Hx Bipolar Disorder - Immunizations Hx Diphtheria, Pertussis, Tetanus Vaccination: Yes Review of Systems - Review of Systems -: Yes All other systems reviewed and negative Physical Exam - Vital signs Vitals: Resp 14 10/14/17 12:12 - General General appearance: Alert, Anxious In distress: Mild - HEENT Head: Normocephalic Eyes: Normal Conjunctiva: Normal Cornea: Normal Extraocular movements intact: Yes Ears: Normal External canal: Normal Tympanic membrane: Normal - Respiratory Respiratory status: No respiratory distress Chest status: Nontender Breath sounds: Normal Chest palpation: Normal - Cardiovascular Rhythm: Regular Heart sounds: Normal auscultation Murmur: No - Abdominal Inspection: Normal Distension: No distension Tenderness: Nontender - Back Back: Normal - Extremities General upper extremity: Normal inspection, Nontender, Normal strength, Normal temperature General lower extremity: Normal inspection, Nontender, Normal strength, Normal temperature - Neurological Neuro grossly intact: No Cognition: Normal Orientation: AAOx4 [place] Coma Scale Eye Opening: Spontaneous Adam Coma Scale Verbal: Oriented Adam Coma Scale Motor: Obeys Commands Adam Coma Scale Total: 15 Speech: Normal Cranial nerves: Normal Cerebellar coordination: Normal Motor strength normal: LUE, RUE, LLE, RLE - Psychological Associated symptoms: Normal affect Course - Re-evaluation Re-evalutation: 10/14/17 15:33 This is a 36-year-old man who presents after an overdose of heroin as well as alcohol today. He endorses anhedonia and a desire to kill himself, has nothing left to live for. Was found in a hotel, has no recent medical illnesses he says he does not have any medical problems except for depression for which she is untreated. He is attempted overdose in the past unsuccessfully. He responded him Narcan prior to arrival. Will obtain screening laboratory examination for psychiatry, have concerned there may be a coingestion. Acetaminophen level is negative, his alcohol level is less than 10, will plan for medical clearance for psychiatric evaluation. We will continue to monitor emergency department and reassess as necessary. - Vital Signs Vital signs: Temp Pulse Resp BP Pulse Ox 98.2 F 11 L 131/97 H 97 10/14/17 12:13 10/14/17 15:01 10/14/17 15:00 10/14/17 15:01 - Laboratory Result Diagrams: 10/14/17 12:20 10/14/17 12:20 Laboratory results interpreted by me: 10/14/17 10/14/17 10/14/17 12:20 12:20 12:20 WBC 2.7 L RBC 3.98 L MCV 101 H MCH 34.2 H RDW 16.1 H Plt Count 140 L Absolute Neutrophils 1.5 L Potassium 3.2 L 3.2 L BUN 4 L 4 L Glucose 137 H 137 H AST 218 H ALT 133 H Salicylates < 1.0 L Acetaminophen < 10 L
[2017-10-14 14:39] LABS: ALANINE AMINOTRANSFERASE 133 U/L (21-72); ALKALINE PHOSPHATASE 75 U/L (38-126); ASPARTATE AMINO TRANSFERASE 218 U/L (17-59); BILIRUBIN,TOTAL 0.8 mg/dL (0.2-1.3)
[2017-10-14 14:40] LABS: ACETAMINOPHEN < 10 ug/mL (10-30); BILIRUBIN,DIRECT 0.4 mg/dL (0.0-0.4); SALICYLATE < 1.0 mg/dL (2.0-20.0); TOTAL PROTEIN 7.8 g/dL (6.3-8.2)
[2017-10-14 15:56] LABS: AMORPHOUS SEDIMENT,URINE TRACE /HPF; APPEARANCE,URINE CLOUDY; BILIRUBIN,URINE NEGATIVE (NEGATIVE); COLOR,URINE YELLOW; GLUCOSE, URINE NEGATIVE (NEGATIVE); KETONES,URINE NEGATIVE (NEGATIVE); LEUKOCYTE ESTERASE,URINE NEGATIVE (NEGATIVE); NITRITE,URINE NEGATIVE (NEGATIVE); PROTEIN,URINE 30 mg/dL (NEGATIVE); URINE SPECIFIC GRAVITY 1.013; UROBILINOGEN,URINE NEGATIVE mg/dL (<2.0)
[2017-10-14 16:05] LABS: URINE AMPHETAMINES SCREEN UNCONFIRMED POSITIVE; URINE BARBITURATES SCREEN NEGATIVE; URINE BENZODIAZEPINES SCREEN NEGATIVE; URINE COCAINE SCREEN NEGATIVE; URINE MARIJUANA (THC) SCREEN UNCONFIRMED POSITIVE; URINE METHADONE SCREEN NEGATIVE; URINE PHENCYCLIDINE SCREEN NEGATIVE
--- NOTE | 2017-10-14 16:42 | PSYCHOLOGICAL NOTE ---
Psych Note - Psych Note Psych Note: Reason for Consult: intentional overdose Consent permissions: none given 36-year-old male presents for evaluation of overdose in the setting of a failed suicide attempt. He presents for evaluation after being found in a motel apneic and unresponsive, he also had been noted to have been drinking a heavy amount of alcohol. Patient disclosed he intentionally overdosed with heroin. He confirms he is a half-way alcohol abuse; "I drink everyday until I am drunk." Patient disclosed that he overdosed because "I am tired of the shit;" he did not elaborate. He confirms he has previous attempts and inpatient treatment back in his home state of [place]. He reports he has been here in the local area "since this year." Patient disclosed he has suffered depression "most of my life" and states he has no support system. Patient is alert and orientated to person, place, time and circumstance. Mood is dysphoric with congruent affect; Patient is currently is physical withdrawal (vomiting). Patient endorses intentional overdose, denies homicidal ideation. Delusions are absent and behavioral is congruent with an intact reality based presentation; ie organized and linear thought processes. Eye contact is poor. Intellectual abilities are within the average range. Attention and concentration are poor. Insight, judgment and impulse control are poor. 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 Patient discloses intentional overdose on heroin. He reports he "was tired of shit" and was unable to provide specific trigger. Patient reports he has had previous attempts in [place]. Patient is currently is physical withdrawal (vomiting). Patient will be reevaluated. Dr. Brock was consulted and the care management this patient; attending physician is agreement with recommendations and disposition.
--- NOTE | 2017-10-14 17:14 | EKG REPORT ---
SEVERITY:- ABNORMAL ECG - SINUS RHYTHM BORDERLINE IVCD WITH LAD PROLONGED QT INTERVAL : Confirmed by: Flash Ivey MD 14-Oct-2017 17:13:55
--- NOTE | 2017-10-15 09:18 | ER Document Report ---
Doctor's Note Notes: 10/15/17 09:50 Patient with history of substance abuse. Currently working on referral to [facility]. The patient will be able to be discharged. Will continue to follow recommendations of mental health at this time and continue to follow today. 10/15/17 17:44 Patient family members here to pick him up. [facility] with [facility]. Nothing further at this time. Not prescribe any meds at discharge at this time either. Discharge - Discharge Clinical Impression: Heroin abuse, Amphetamine abuse, Cannabis abuse, Suicidal ideation Condition: Stable Disposition: HOME, SELF-CARE Additional Instructions: NARCOTIC / OPIOD ABUSE: Narcotics and opiods are pain-relieving drugs that are often abused. They are addicting. Narcotics cause euphoria, but it often takes increasing amounts to "feel good" and avoid withdrawal symptoms. Overdose of narcotics causes small pupils, coma, and decreased breathing. It's a common cause of . Purity of street narcotics is unpredictable. Injection of narcotics is risky for abscesses, endocarditis (heart infection), pneumonia, and AIDS. Withdrawal from narcotics causes goose bumps, watery mouth, sweating, nasal congestion, muscle aches, abdominal cramps, vomiting, and diarrhea. There 's often restlessness and confusion. Treatment programs are available, but you must make the decision to quit. Medication (such as clonidine) can be prescribed to control the symptoms of withdrawal. AMPHETAMINE / METHAMPHETAMINE ABUSE: Amphetamines are addicting stimulants. Amphetamines overstimulate the nervous system and give a false feeling of power and mastery. These drugs may be obtained as prescription pills for weight loss, narcolepsy, or attention- deficit disorder. More often they're bought as an illegal street drug, methamphetamine (crank, crystal, speed). Using amphetamines repeatedly can lead to serious medical problems including malnutrition, severe depression, and paranoia. It can take increasing amounts to feel good. Eventually, there will be a "burn out." When you go off amphetamines there is a period of depression that may last for weeks or even months. High doses of amphetamines can cause seizures, confusion, hallucinations, delusions, high blood pressure, muscle damage, heart damage, or sudden . Many times these deadly complications occur even with "normal" doses. Injection of amphetamines is risky for developing abscesses, endocarditis ( heart infection), pneumonia, and AIDS. Withdrawal from amphetamines often causes anxiety, depression, and drug cravings. Some users become paranoid and psychotic. There may be cramps, nausea , and vomiting. Many treatment programs are available, but you must make the decision to quit. Medication can be prescribed to control the symptoms of amphetamine toxicity (beta blockers or benzodiazepines). Withdrawal symptoms may require tranquilizers. DEPRESSION: Your evaluation reveals that you have mental depression. While symptoms may be vague, they often include disturbance of sleep, fatigue, loss of appetite , and general loss of interest in life. While depression may be a side effect of drugs, or a reaction to a major change in your life, many cases have no known cause. If depression is acute, and related to a major loss in your life, you can expect it to clear completely with time. If you have been depressed a long time , are prone to repeated bouts of depression or low mood, or have been thinking of suicide, get help. Depression can be treated with anti-depressant medication and counselling. Long-term depression will often take a few weeks to clear, even with appropriate medication. Follow-up care is important. SUICIDAL IDEATION: Suicidal ideation is a common medical term for thoughts about suicide, which may be as detailed as a formulated plan, without the suicidal act itself. Although most people who undergo suicidal ideation do not commit suicide, some go on to make suicide attempts. The range of suicidal ideation varies greatly from fleeting to detailed planning, role playing, and unsuccessful attempts. While thoughts about suicide are common, most people do not carry out serious actions to commit suicide. Based upon your evaluation and discussion with you, we do not believe you are currently at risk to act upon your thoughts of suicide. You have agreed to return to the Emergency Department, at any time , if you feel inclined to act upon your suicidal thoughts. FOLLOW-UP CARE: You have completed a phone interview with the [facility]. You are being linked up with [facility] mobile crisis so they can actively assist with voluntary substance abuse detoxification/rehabilitation placement. You have been provided with the outpatient mental health resource sheet which highlighted the mobile crisis number, explained use was for talk therapy and crisis situations, and also [facility] for outpatient substance abuse treatment. If you experience worsening or a significant change in your symptoms, notify the physician immediately or return to the Emergency Department at any time for re-evaluation. Referrals: [facility] [Outside] - Follow up as needed [facility] [Outside] - Follow up as needed
[2017-10-15 16:13] VITALS: BP 126/75
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
== END 2017-10-15 18:02 | disposition home or self-care (01) ==
LOC: ER 12:09
DX: T40.1X2A Poisoning by heroin, intentional self-harm, initial encounter (principal); T51.92XA Toxic effect of unspecified alcohol, intentional self-harm, initial encounter; Y92.59 Other trade areas as the place of occurrence of the external cause; F17.210 Nicotine dependence, cigarettes, uncomplicated; F15.10 Other stimulant abuse, uncomplicated; F12.10 Cannabis abuse, uncomplicated; R45.851 Suicidal ideations
CPT/HCPCS: 93005; 99285; 96361; 96374; 96375; 36415; 80307 ×4; 85025; 80048; 80053; 81001; 93010; J2765; J2405; J7030

== ENCOUNTER 2018-04-20 15:20 | Emergency (ER) | payer OTHER ==
[2018-04-20 15:45] VITALS: BP 120/82
--- NOTE | 2018-04-20 16:00 | ER Document Report ---
ED Medical Screen (RME) - General Chief Complaint: Laceration Stated Complaint: FINGER LACERATION Time Seen by Provider: 04/20/18 15:59 Mode of Arrival: Ambulatory Information source: Patient TRAVEL OUTSIDE OF THE U.S. IN LAST 30 DAYS: No - HPI Patient complains to provider of: laceration Onset: Just prior to arrival - pt. with laceraton to L ring finger at work. Tet- UTD - Related Data Allergies/Adverse Reactions: No Known Allergies Allergy (Verified 08/22/17 19:42) Past Medical History Renal/ Medical History: Reports: Hx Kidney Stones. Denies: Hx Peritoneal Dialysis Psychiatric Medical History: Reports: Hx Bipolar Disorder - Immunizations Hx Diphtheria, Pertussis, Tetanus Vaccination: Yes History of Influenza Vaccine for 11/2016 - 04/2017 Season: Unknown Physical Exam - Vital signs Vitals: Temp Pulse Resp BP Pulse Ox 98.1 F 89 16 120/82 95 04/20/18 15:43 04/20/18 15:43 04/20/18 15:43 04/20/18 15:43 04/20/18 15:43 Course - Vital Signs Vital signs: Temp Pulse Resp BP Pulse Ox 98.1 F 89 16 120/82 95 04/20/18 15:43 04/20/18 15:43 04/20/18 15:43 04/20/18 15:43 04/20/18 15:43
--- NOTE | 2018-04-20 16:36 | ER Document Report ---
ED General - General Chief Complaint: Laceration Stated Complaint: FINGER LACERATION Time Seen by Provider: 04/20/18 15:59 Mode of Arrival: Ambulatory Information source: Patient TRAVEL OUTSIDE OF THE U.S. IN LAST 30 DAYS: No - HPI Patient complains to provider of: Left ring finger laceration Onset: This morning Onset/Duration: Sudden Quality of pain: No pain Severity: None Context: Cut on metal door at work. Associated symptoms: None Exacerbated by: Denies Relieved by: Denies Similar symptoms previously: No Recently seen / treated by doctor: No Notes: 37-year-old male coming in today with laceration to the left ring finger. He was working on some metal doors at work and lacerated his left ring finger. Last tetanus is within 5-10 years. Does not want any tetanus prophylaxis today. Would not have come in unless it had been for the excessive bleeding. - Related Data Allergies/Adverse Reactions: No Known Allergies Allergy (Verified 08/22/17 19:42) Past Medical History - General Information source: Patient - Social History Smoking Status: Current Every Day Smoker Family History: Reviewed & Not Pertinent, Hypertension Patient has suicidal ideation: No Patient has homicidal ideation: No Renal/ Medical History: Reports: Hx Kidney Stones. Denies: Hx Peritoneal Dialysis Psychiatric Medical History: Reports: Hx Bipolar Disorder - Immunizations Hx Diphtheria, Pertussis, Tetanus Vaccination: Yes Review of Systems - Review of Systems Notes: Constitutional: No fevers. No chills. EENT: No eye redness. No eye pain. No ear pain. No sore throat. Cardiovascular: No chest pain. No palpitations. Respiratory: No cough. No shortness of breath. No respiratory distress. Gastrointestinal: No abdominal pain. No nausea, vomiting, or diarrhea. Genitourinary: Atraumatic. No lesions. No pain. No discharge. Musculoskeletal: Atraumatic. No swelling. No deformities. Positive laceration left ring finger Skin: No rash or lesions. Lymphatic: No swollen lymph nodes. Neurologic: No headache. No syncope. Psychiatric: No suicidal or homicidal ideation. Physical Exam - Vital signs Vitals: Temp Pulse Resp BP Pulse Ox 98.1 F 89 16 120/82 95 04/20/18 15:43 04/20/18 15:43 04/20/18 15:43 04/20/18 15:43 04/20/18 15:43 - Notes Notes: General: Well-developed, well-nourished. In no acute distress. Non-toxic appearing. Cardiac: Well-perfused. Regular rate and rhythm. No murmurs, rubs, or gallops. Pulmonary: No respiratory distress. No cyanosis. Bilateral lung fiels are clear to auscultation. Abdominal: Non-distended. Non-rigid. Bowels sounds are present in all four quadrants. No guarding or rebound. HEENT: Head is atraumatic. Conjunctivae not reddened. No tearing. PERRL. EOMI. Orbits atraumatic. No periorbital swelling or erythema. Oropharynx is without erythema, swelling, or exudates. Neck: Supple. No adenopathy. No meningismus. Dermatologic: Warm with good turgor. No rash. Atraumatic. Chest: Atraumatic. No chest wall tenderness to palpation. Musculoskeletal: Moves all extremities well. No range of motion deficits. no muscular or joint tenderness. No paraspinal muscle tenderness. no midline spinal tenderness or step-off. There is a left ring finger laceration which is about 4 cm long going from the palmar surface of the distal phalanx of the middle phalanx. The portion of the wound over the distal phalanx is wide and consistent with a skin avulsion. No active bleeding. Neurovascularly intact Genitourinary: Examination deferred Neurologic: No gross neurologic deficits. Psychiatric: Normal mood. Course - Re-evaluation Re-evalutation: 04/20/18 16:33 Patient has more of a skin avulsion than a normal laceration. There is actually no skin to so. We will clean it up good and dress it with Gelfoam or Surgicel and then a nonstick dressing. We will put the patient on Keflex prophylactically. - Vital Signs Vital signs: Temp Pulse Resp BP Pulse Ox 98.1 F 89 16 120/82 95 04/20/18 15:43 04/20/18 15:43 04/20/18 15:43 04/20/18 15:43 04/20/18 15:43 Discharge - Discharge Clinical Impression: Finger laceration Qualifiers: Encounter type: initial encounter Finger: ring finger Damage to nail status: without damage Foreign body presence: without foreign body Laterality: left Qualified Code(s): S61.215A - Laceration without foreign body of left ring finger without damage to nail, initial encounter Condition: Good Disposition: HOME, SELF-CARE Instructions: Prophylactic Antibiotic ([facility]), Laceration Care ([facility]) Additional Instructions: Leave the dressing on for 72 hours so that the wound can properly start healing. After that be very gentle about removing the dressing and cleaning it gently with soap and water. Continue to use a nonstick dressing so that she do not pull apart the healing skin. Return in 2 days for recheck or see your doctor in 2 days Prescriptions: Cephalexin Monohydrate [Keflex 500 mg Capsule] 500 mg PO TID 7 Days #21 capsule Referrals: [facility] [Provider Group] - 04/22/18
== END 2018-04-20 17:26 | disposition home or self-care (01) ==
LOC: ER 15:20
DX: S61.215A Laceration without foreign body of left ring finger without damage to nail, initial encounter (principal); W45.8XXA Other foreign body or object entering through skin, initial encounter
CPT/HCPCS: 99282

== ENCOUNTER 2018-06-23 11:00 | Inpatient (IN) | payer SELFPAY ==
[2018-06-23] MEDS ORDERED: ONDANSETRON HCL INJ/PF 4 MG/2 ML SDV IV ONE (11:38)
[2018-06-23] MEDS ORDERED: THIAMINE HCL 100 MG, FOLIC ACID 1 MG in NORMAL SALINE 250 ML IV ONE (11:39)
--- NOTE | 2018-06-23 11:41 | ER Document Report ---
ED Medical Screen (RME) - General Chief Complaint: Suicidal Ideation Stated Complaint: PSYCH EVAL Time Seen by Provider: 06/23/18 11:33 Mode of Arrival: Ambulatory Information source: Patient Notes: 37-year-old male presented to ED for ideation and alcohol withdrawal. He states he drank a case of beer yesterday and was smoking weed. He does have a history of depression and liver disease cirrhosis and pancreatitis. States right now he is not having any physical pain but a lot of mental pain. States he needs to be seen to get help with his problems so that he does not kill himself. He is alert oriented respirations regular and unlabored speaking in full sentences at this time. I have greeted and performed a rapid initial assessment of this patient. A comprehensive ED assessment and evaluation of the patient, analysis of test results and completion of medical decision making process will be conducted by an additional ED providers. Dictation of this chart was performed using voice recognition software; therefore, there may be some unintended grammatical errors. TRAVEL OUTSIDE OF THE [place] IN LAST 30 DAYS: No - Related Data Allergies/Adverse Reactions: No Known Allergies Allergy (Verified 06/23/18 11:18) Past Medical History - Social History Family history: None Renal/ Medical History: Reports: Hx Kidney Stones. Denies: Hx Peritoneal Dialysis GI Medical History: Reports: Hx Pancreatitis Psychiatric Medical History: Reports: Hx Bipolar Disorder, Hx Depression - Immunizations Hx Diphtheria, Pertussis, Tetanus Vaccination: Yes History of Influenza Vaccine for 11/2016 - 04/2017 Season: Unknown Physical Exam - Vital signs Vitals: Temp Pulse Resp BP Pulse Ox 98.4 F 70 18 147/97 H 100 06/23/18 11:27 06/23/18 11:27 06/23/18 11:27 06/23/18 11:27 06/23/18 11:27 Course - Vital Signs Vital signs: Temp Pulse Resp BP Pulse Ox 98.4 F 70 18 147/97 H 100 06/23/18 11:27 06/23/18 11:27 06/23/18 11:27 06/23/18 11:27 06/23/18 11:27
[2018-06-23] MEDS: NORMAL SALINE 1000 ML 1,000 ML IV PRN ×3 (11:56→23:06)
[2018-06-23 12:15] LABS: ABSOLUTE LYMPHOCYTES (AUTO) 0.8 10^3/uL (0.5-4.7); ABSOLUTE MONOCYTES (AUTO) 0.2 10^3/uL (0.1-1.4); ABSOLUTE NEUT (AUTO) 1.2 10^3/uL (1.7-8.2); BASOPHILS % (AUTO) 1.2 % (0-2); EOSINOPHILS % (AUTO) 0.6 % (0-6); HEMATOCRIT 43.2 % (37.9-51.0); HEMOGLOBIN 14.5 g/dL (13.5-17.0); LYMPHOCYTES % (AUTO) 35.9 % (13-45); MEAN CORPUSCULAR HEMOGLOBIN 33.9 pg (27.0-33.4); MEAN CORPUSCULAR HGB CONC 33.6 g/dL (32.0-36.0); MEAN CORPUSCULAR VOLUME 101 fl (80-97); MONOCYTES % (AUTO) 7.5 % (3-13); PLATELET COUNT 144 10^3/uL (150-450); RED BLOOD COUNT 4.27 10^6/uL (4.35-5.55); RED CELL DISTRIBUTION WIDTH 15.6 % (11.5-14.0); SEGMENTED NEUTROPHILS % (AUTO) 54.8 % (42-78); TOTAL CELLS COUNTED % (AUTO) 100 %; WHITE BLOOD COUNT 2.2 10^3/uL (4.0-10.5)
[2018-06-23 12:27] LABS: APPEARANCE,URINE CLEAR; BILIRUBIN,URINE SMALL (NEGATIVE); COLOR,URINE AMBER; GLUCOSE, URINE NEGATIVE (NEGATIVE); KETONES,URINE NEGATIVE (NEGATIVE); LEUKOCYTE ESTERASE,URINE NEGATIVE (NEGATIVE); NITRITE,URINE NEGATIVE (NEGATIVE); PROTEIN,URINE 30 mg/dL (NEGATIVE); URINE SPECIFIC GRAVITY 1.021
[2018-06-23 12:45] LABS: URINE AMPHETAMINES SCREEN NEGATIVE; URINE BENZODIAZEPINES SCREEN UNCONFIRMED POSITIVE; URINE COCAINE SCREEN NEGATIVE; URINE MARIJUANA (THC) SCREEN UNCONFIRMED POSITIVE; URINE METHADONE SCREEN NEGATIVE; URINE PHENCYCLIDINE SCREEN NEGATIVE
[2018-06-23 12:46] LABS: URINE BARBITURATES SCREEN NEGATIVE
--- NOTE | 2018-06-23 12:56 | EKG REPORT ---
SEVERITY:- ABNORMAL ECG - SINUS RHYTHM LEFT AXIS DEVIATION BORDERLINE PROLONGED QT INTERVAL NONSPECIFIC ST-T CHANGES- INFERIOR LEADS : Confirmed by: Flash Ivey MD 23-Jun-2018 12:56:28
[2018-06-23] MEDS ORDERED: FOLIC ACID/VITAMIN B COMP W-C CAPSULE PO ONE (12:57)
[2018-06-23] MEDS ORDERED: LORAZEPAM INJ 2 MG/1 ML VIAL IV ONE (12:58)
--- NOTE | 2018-06-23 13:02 | ER Document Report ---
ED General - General Chief Complaint: Suicidal Ideation Stated Complaint: PSYCH EVAL Time Seen by Provider: 06/23/18 11:33 Mode of Arrival: Ambulatory TRAVEL OUTSIDE OF THE [place] IN LAST 30 DAYS: No - HPI Patient complains to provider of: Suicidal ideation Notes: Suicidal ideation increasing depression alcohol abuse. 37-year-old alcoholic male who presents with plan to kill himself with Tylenol overdose will abusing alcohol. Patient last drank this morning. Patient has history of suicide attempts in the past. Patient also has history of withdrawal seizures and delirium tremens. Patient that he keeps drinking to make sure he does not have seizures. But the depression is gone to great. The thoughts of killing himself are now constant. Patient has no support in the community. - Related Data Allergies/Adverse Reactions: No Known Allergies Allergy (Verified 06/23/18 11:18) Past Medical History - General Information source: Patient - Social History Smoking Status: Current Every Day Smoker Chew tobacco use (# tins/day): No Frequency of alcohol use: Heavy Drug Abuse: Marijuana Family History: Reviewed & Not Pertinent, Hypertension Patient has suicidal ideation: No Patient has homicidal ideation: No Renal/ Medical History: Reports: Hx Kidney Stones. Denies: Hx Peritoneal Dialysis GI Medical History: Reports: Hx Pancreatitis Psychiatric Medical History: Reports: Hx Bipolar Disorder, Hx Depression - Immunizations Hx Diphtheria, Pertussis, Tetanus Vaccination: Yes Review of Systems - Review of Systems Notes: REVIEW OF SYSTEMS: CONSTITUTIONAL: -fevers, -chills EENT: -eye pain, -difficulty swallowing, -nasal congestion CARDIOVASCULAR: -chest pain, -syncope. RESPIRATORY: -cough, -SOB GASTROINTESTINAL: -abdominal pain, -nausea, -vomiting, -diarrhea GENITOURINARY: -dysuria, -hematuria MUSCULOSKELETAL: -back pain, -neck pain SKIN: -rash or skin lesions. HEMATOLOGIC: -easy bruising or bleeding. LYMPHATIC: -swollen, enlarged glands. NEUROLOGICAL: -altered mental status or loss of consciousness, -headache, - neurologic symptoms PSYCHIATRIC: Positive for suicidal ideation ALL OTHER SYSTEMS REVIEWED AND NEGATIVE. Physical Exam - Vital signs Vitals: Temp Pulse Resp BP Pulse Ox 98.4 F 70 18 147/97 H 100 06/23/18 11:27 06/23/18 11:27 06/23/18 11:27 06/23/18 11:27 06/23/18 11:27 - Notes Notes: PHYSICAL EXAMINATION: GENERAL: Well-appearing, well-nourished , severe acute distress. HEAD: Atraumatic, normocephalic. EYES: Pupils equal round and reactive to light, extraocular movements intact, sclera anicteric, conjunctiva are normal. ENT: nares patent, oropharynx clear without exudates. Moist mucous membranes. NECK: Normal range of motion, supple without lymphadenopathy LUNGS: Breath sounds clear to auscultation bilaterally and equal. No wheezes rales or rhonchi. HEART: Regular rate and rhythm without murmurs ABDOMEN: Soft, nontender, normoactive bowel sounds. No guarding, no rebound. No masses appreciated. EXTREMITIES: Normal range of motion, no pitting or edema. No cyanosis. NEUROLOGICAL: Cranial nerves grossly intact. Normal speech, normal gait. Normal sensory and motor exams. PSYCH: depressed Mood, flattened affect. SKIN: Warm, Dry, normal turgor, no rashes or lesions noted. Course - Re-evaluation Re-evalutation: 06/23/18 13:01 37-year-old alcoholic male presents with increasing depression and suicidal ideation with plan to kill himself via Tylenol overdose. Patient has history of suicide attempts in the past. Patient also has history of seizure disorder along with delirium tremens from alcohol withdrawal. Last drink was only few hours ago. Given patient's lengthy history of seizures and delirium tremens. Patient will have to be admitted medically during her hospital while IVC paperwork are initiated. Patient will get psychiatry consult. Will be placed for substance and suicidal management after he completes his hospitalization for alcohol withdrawal 06/23/18 13:25 - Vital Signs Vital signs: Temp Pulse Resp BP Pulse Ox 98.4 F 70 18 147/97 H 100 06/23/18 11:27 06/23/18 11:27 06/23/18 11:27 06/23/18 11:27 06/23/18 11:27 - Laboratory Result Diagrams: 06/23/18 11:55 06/23/18 11:55 Laboratory results interpreted by me: 06/23/18 06/23/18 11:55 12:08 WBC 2.2 L RBC 4.27 L MCV 101 H MCH 33.9 H RDW 15.6 H Plt Count 144 L Absolute Neutrophils 1.2 L Urine Protein 30 H Urine Bilirubin SMALL H Urine Urobilinogen 4.0 H Discharge - Discharge Clinical Impression: Suicidal ideation Alcohol withdrawal Qualifiers: Complication of substance-induced condition: with unspecified complication Qualified Code(s): F10.239 - Alcohol dependence with withdrawal, unspecified Condition: Serious Disposition: ADMITTED INPATIENT Admitting Provider: Nella (Hospitalist) Unit Admitted: Medical Floor
[2018-06-23 13:33] LABS: ALANINE AMINOTRANSFERASE 215 U/L (21-72); ALCOHOL 19 mg/dL (NONE DETECTED); ALKALINE PHOSPHATASE 114 U/L (38-126); ANION GAP 13 (5-19); ASPARTATE AMINO TRANSFERASE 336 U/L (17-59); BILIRUBIN,DIRECT 0.4 mg/dL (0.0-0.4); BILIRUBIN,TOTAL 1.5 mg/dL (0.2-1.3); BLOOD UREA NITROGEN 4 mg/dL (7-20); CALCIUM 8.9 mg/dL (8.4-10.2); CARBON DIOXIDE 27 mmol/L (22-30); CHLORIDE 101 mmol/L (98-107); GLUCOSE 95 mg/dL (75-110); LIPASE 290.3 U/L (23-300); POTASSIUM 4.8 mmol/L (3.6-5.0); SODIUM 140.6 mmol/L (137-145); TOTAL PROTEIN 7.1 g/dL (6.3-8.2)
[2018-06-23 13:34] LABS: ACETAMINOPHEN < 10 ug/mL (10-30); SALICYLATE < 1.0 mg/dL (2.0-20.0)
[2018-06-23] MEDS ORDERED: PROMETHAZINE HCL INJ 25 MG/1 ML VIAL IV PRN (14:02)
[2018-06-23] MEDS ORDERED: ONDANSETRON HCL INJ/PF 4 MG/2 ML SDV IV PRN (14:02)
--- NOTE | 2018-06-23 14:10 | PSYCHOLOGICAL NOTE ---
Psych Note - Psych Note Date seen by psych provider: 06/23/18 Time seen by psych provider: 12:40 - 1250 Psych Note: Reason for Consult: Substance abuse and suicidal ideation Suicidal ideation increasing depression alcohol abuse. 37-year-old alcoholic male who presents with plan to kill himself with overdose on Tylenol while drinking alcohol. Patient reports that he came to [facility] because he has been "feeling suicidal because of his alcoholism. He states that he was on medication for his mental health a long time ago when he lived back in [place]. Since moving to [place] he has not been taking medications. He reports that "I wake up in think of alcohol and suicide... That is all I ever think about... I am sick I need to do something... I need to stop drinking." He disclosed that he has been to detox "a couple of times" however not always just for alcohol. He states that he used to use anything and everything but has been off of it "for a while." He states that his go to constant his alcohol; "it is the only thing that appeals to me." He states he started drinking when he was 14 years old and drinks about a case of beer a day however states is not "beer, beer, like your typical beer,I drink things like [employer] or bootlegger drinks." Patient discloses that he already knows what he would do to harm himself because he is done it before. He states that he is overdoses on Tylenol because he does not have access to weapons. He confirms he has attempted to harm himself 3 times previously with one time resulting in hospitalization for "a really long time... I messed up my kidneys and liver... It was bad." Patient discloses that in the past he has had difficulty with rehab programs because he gets "antsy" and just wants to work. "I like to work, I have really good work ethic." Patient is alert and orientated to person, place, time and circumstance. Mood is anxious with congruent affect. Patient endorses suicidal ideation with a plan of overdosing on Tylenol while drinking alcohol. Patient does have a history of overdosing on Tylenol approximately 3 times previous. Patient denies homicidal ideation. Delusions are absent behaviors congruent with an intact reality based presentation i.e. organized and linear thought process. Eye contact was well-maintained. Conversational speech is within normal rate, tone and prosody. Intellectual abilities appear to be within the average range. A ttention and concentration are fair. Insight, judgment, impulse control are poor. Diagnosis 291.9 (F10.99) unspecified alcohol related disorder per history provided by patient 296.41 (F31.11) Bipolar I Disorder, Mild, Current,per history provided by patient 292.9 (F11.99) unspecified opiate related disorder per history provided by patient 292.9 (F15.99) unspecified stimulant related disorder; amphetamine per history provided by patient 292.9 (F12.99) unspecified cannabis related disorder per history provided by patient Impression/Plan: patient is recommended for IVC. Patient reports suicidal ideation with a plan to overdose on Tylenol. Patient has a history of both mental health and polysubstance abuse. Patient has been off medications and self-medicating for about 3 years. Patient is currently on probation for DUI. He has been admitted medically. He will be reevaluated. Dr. Brock was consulted to care management of this patient; attending physicians in agreement with recommendations and disposition.
--- NOTE | 2018-06-23 17:03 | PDOC H&P ---
History of Present Illness Patient complains of: suicidal ideation. alcoholism History of Present Illness: AYDEE COLLIER is a 37 year old male who just discharged from [facility] on June 08. He presents today after feeling suicidal last night. He could not sleep. He felt heightened anxiety. His plan was to continually take Tylenol while he was drinking. The emergency room physician reports a case of beer consumed last night. His hospitalization in May was 4 chronic alcohol use with acute kidney injury and alcoholic hepatitis. He is on involuntary commitment at this time. He appears to be resting comfortably. No tremulousness. He is awake alert and oriented and conversing appropriately. He does report feeling cold and he is under several blankets. He reports to this provider that he feels safe now and does not feel suicidal. His appetite is been quite poor. He feels that if he eats he will vomit. He has had nausea and vomiting as well as diarrhea and cramping in his arms and calves. He also reports weakness and poor balance. He was admitted to the hospital service for admission. Psychiatry has seen the patient. Past Medical History GI Medical History: Reports: Hepatitis - Alcohol related hepatitis Psychiatric Medical History: Reports: Bipolar Disorder, Depression Social History Information Source: Patient, [facility] Records Smoking Status: Current Every Day Smoker Frequency of Alcohol Use: Heavy Hx Recreational Drug Use: Yes Drugs: Marijuana, Other - Benzodiazepines Hx Prescription Drug Abuse: No Family History Family History: Reviewed & Not Pertinent, Hypertension Parental Family History Reviewed: Yes Children Family History Reviewed: Yes Sibling(s) Family History Reviewed.: Yes Medication/Allergy Home Medications: No Home Medications 06/23/18 Allergies/Adverse Reactions: No Known Allergies Allergy (Verified 06/23/18 11:18) Review of Systems All systems: reviewed and no additional remarkable complaints except as stated Constitutional: PRESENT: anorexia, fatigue. ABSENT: fever(s), night sweats Eyes: ABSENT: visual disturbances Ears: ABSENT: hearing changes Nose, Mouth, and Throat: ABSENT: mouth pain, sore throat Cardiovascular: ABSENT: chest pain, dyspnea on exertion, edema, palpitations Respiratory: ABSENT: cough, dyspnea Gastrointestinal: PRESENT: diarrhea, nausea, vomiting Genitourinary: ABSENT: dysuria, hematuria Musculoskeletal: ABSENT: joint swelling Integumentary: ABSENT: diaphoresis, rash, wounds Neurological: ABSENT: abnormal speech, convulsions, syncope, tremor(s), vertigo Psychiatric: PRESENT: depression, suicidal ideation. ABSENT: hallucinations Endocrine: ABSENT: cold intolerance, heat intolerance, polydipsia, polyphagia Hematologic/Lymphatic: ABSENT: easy bruising, lymphadenopathy Allergic/Immunologic: ABSENT: seasonal rhinorrhea Physical Exam Vital Signs: Temp Pulse Resp BP Pulse Ox 98.4 F 70 18 147/97 H 100 06/23/18 11:27 06/23/18 11:27 06/23/18 11:27 06/23/18 11:27 06/23/18 11:27 Intake & Output 06/22/18 06/23/18 06/24/18 06:59 06:59 06:59 Intake Total 1768.2 Balance 1768.2 Weight 74 kg General appearance: PRESENT: cooperative, mild distress, well-developed Head exam: PRESENT: atraumatic, normocephalic Eye exam: PRESENT: conjunctiva pink, EOMI. ABSENT: periorbital swelling, scleral icterus Ear exam: PRESENT: normal external ear exam Mouth exam: PRESENT: dry mucosa, tongue midline Neck exam: PRESENT: full ROM. ABSENT: carotid bruit, JVD, lymphadenopathy Respiratory exam: PRESENT: rhonchi - Right base, symmetrical, unlabored. ABSENT: chest wall tenderness, prolonged expiratory phas, rales, tachypnea, wheezes Cardiovascular exam: PRESENT: RRR, +S1, +S2 GI/Abdominal exam: PRESENT: normal bowel sounds, soft. ABSENT: distended, tenderness Rectal exam: PRESENT: deferred Gentrourinary exam: ABSENT: indwelling catheter Extremities exam: ABSENT: pedal edema Musculoskeletal exam: PRESENT: normal inspection Neurological exam: PRESENT: alert, awake, oriented to person, oriented to place, oriented to situation Psychiatric exam: PRESENT: flat affect. ABSENT: agitated, anxious Focused psych exam: ABSENT: delusional, restlessness Skin exam: PRESENT: dry, normal color, warm. ABSENT: rash Results Laboratory Results: 06/23/18 11:55 06/23/18 12:37 06/23/18 06/23/18 06/23/18 11:55 11:55 12:08 WBC 2.2 L RBC 4.27 L Hgb 14.5 Hct 43.2 MCV 101 H MCH 33.9 H MCHC 33.6 RDW 15.6 H Plt Count 144 L Seg Neutrophils % 54.8 Lymphocytes % 35.9 Monocytes % 7.5 Eosinophils % 0.6 Basophils % 1.2 Absolute Neutrophils 1.2 L Absolute Lymphocytes 0.8 Absolute Monocytes 0.2 Absolute Eosinophils 0.0 Absolute Basophils 0.0 Sodium Cancelled Potassium Cancelled Chloride Cancelled Carbon Dioxide Cancelled Anion Gap Cancelled BUN Cancelled Creatinine Cancelled Est GFR ( Amer) Cancelled Est GFR (Non-Af Amer) Cancelled Glucose Cancelled Calcium Cancelled Total Bilirubin Cancelled AST Cancelled ALT Cancelled Alkaline Phosphatase Cancelled Total Protein Cancelled Albumin Cancelled Lipase Cancelled Urine Color NANCY Urine Appearance CLEAR Urine pH 8.0 Ur Specific [place] 1.021 Urine Protein 30 H Urine Glucose (UA) NEGATIVE Urine Ketones NEGATIVE Urine Blood NEGATIVE Urine Nitrite NEGATIVE Ur Leukocyte Esterase NEGATIVE Urine WBC (Auto) 2 Urine RBC (Auto) 1 06/23/18 12:37 WBC RBC Hgb Hct MCV MCH MCHC RDW Plt Count Seg Neutrophils % Lymphocytes % Monocytes % Eosinophils % Basophils % Absolute Neutrophils Absolute Lymphocytes Absolute Monocytes Absolute Eosinophils Absolute Basophils Sodium 140.6 Potassium 4.8 Chloride 101 Carbon Dioxide 27 Anion Gap 13 BUN 4 L Creatinine 0.73 Est GFR ( Amer) > 60 Est GFR (Non-Af Amer) > 60 Glucose 95 Calcium 8.9 Total Bilirubin 1.5 H AST 336 H ALT 215 H Alkaline Phosphatase 114 Total Protein 7.1 Albumin 4.0 Lipase 290.3 Urine Color Urine Appearance Urine pH Ur Specific [place] Urine Protein Urine Glucose (UA) Urine Ketones Urine Blood Urine Nitrite Ur Leukocyte Esterase Urine WBC (Auto) Urine RBC (Auto) Assessment and Plan - Diagnosis (1) Suicidal ideation Is this a current diagnosis for this admission?: Yes Plan: The patient is currently on involuntary commitment. Please also see psychiatry note. He had a valid plan to overdose on Tylenol while. He did not carry forth with this plan. He was seen by psychiatry. There is a history of depression/bipolar disease. At this time no antidepressant therapy. Medications will focus on potential alcohol withdrawal. Of note serum alcohol level was 19 but acetaminophen level was less than 10. (2) Alcohol dependence Qualifiers: Substance use status: uncomplicated Qualified Code(s): F10.20 - Alcohol dependence, uncomplicated Is this a current diagnosis for this admission?: Yes Plan: The patient has been to detox before. In addition to alcohol he has had polysubstance abuse. His tox screen was positive for marijuana and benzodiazepines. He is currently on involuntary commitment. I believe psychiatry is looking for inpatient treatment. At this point as needed benzodiazepine therapy has been ordered in addition to thiamine, folic acid and B complex. He does not have pancreatitis and a diet has been ordered. He is also on proton pump inhibitors. (3) Elevated liver enzymes Is this a current diagnosis for this admission?: Yes Plan: 06/23/2018-Laveta transaminases secondary to alcohol. His transaminases are in fact higher than his May admission but his total bilirubin is lower. Renal function is normal. We will continue to monitor liver chemistries. I have or dered a PT/PTT to see if there is any auto anticoagulation from liver disease. (4) Dehydration Is this a current diagnosis for this admission?: Yes Plan: 06/23/2018-appears dry despite normal BUN and creatinine. Fluids for the first 24 to 48 hours. Continue to monitor. (5) Leukopenia Qualifiers: Leukopenia type: neutropenia Neutropenia type: other Qualified Code(s): D70.8 - Other neutropenia Is this a current diagnosis for this admission?: Yes Plan: 06/23/2018-White blood cell count is quite low. This is likely due to bone marrow suppression from chronic alcohol use. If white blood cell count drops any lower we will institute neutropenic precautions. Currently on thiamine, folic acid and vitamin B complex. (6) Thrombocytopenia Is this a current diagnosis for this admission?: Yes Plan: 06/23/2018-low platelet count is likely secondary to poor bone marrow response due to chronic alcoholism. We will continue to monitor platelet counts. - Time Time Spent with patient: 70 minutes Time Spent with patient: 35 or more minutes Medications reviewed and adjusted accordingly: Yes Anticipated discharge: Other - Likely inpatient detox - Inpatient Certification Based on my medical assessment, after consideration of the patient's comorbidities, presenting symptoms, or acuity I expect that the services needed warrant INPATIENT care.: Yes I certify that my determination is in accordance with my understanding of Medicare's requirements for reasonable and necessary INPATIENT services [42 CFR 412.3e].: Yes Medical Necessity: Failure to Improve With Outpatient Therapy, Significant Comorbidiites Make Outpatient Treatment Too Risky, Need Close Monitoring Due to Risk of Patient Decompensation, Need For IV Fluids, Need For Continuous Telemetry Monitoring, Need for Pain Control, Risk of Complication if Not Cared For in Hospital Post Hospital Care: D/C Gre[employer]acker Documentation
[2018-06-23] MEDS: DIAZEPAM INJ 10 MG/2 ML DISP.SYRIN IV PRN ×3 (18:21→23:03)
[2018-06-23] MEDS: PANTOPRAZOLE SODIUM 40 MG TABLET.DR PO SCH (18:21)
[2018-06-23] MEDS: HEPARIN SOD (PORCINE) 5,000 UNIT/ML 1 ML SYRINGE SUBCUT SCH (21:52)
[2018-06-23] MEDS: FENTANYL CITRATE INJ/PF 100 MCG/2 ML AMPUL IV PRN (22:03)
[2018-06-24] MEDS: DIAZEPAM INJ 10 MG/2 ML DISP.SYRIN IV PRN ×5 (03:51→21:06)
[2018-06-24] MEDS: HEPARIN SOD (PORCINE) 5,000 UNIT/ML 1 ML SYRINGE SUBCUT SCH ×3 (05:44→21:19)
[2018-06-24] MEDS: PROMETHAZINE HCL INJ 25 MG/1 ML VIAL IV PRN ×2 (06:39→21:12)
[2018-06-24] MEDS: PANTOPRAZOLE SODIUM 40 MG TABLET.DR PO SCH ×2 (06:41→17:37)
[2018-06-24 06:59] LABS: HEMATOCRIT 36.7 % (37.9-51.0); HEMOGLOBIN 12.5 g/dL (13.5-17.0); MEAN CORPUSCULAR HEMOGLOBIN 33.8 pg (27.0-33.4); MEAN CORPUSCULAR VOLUME 100 fl (80-97); RED BLOOD COUNT 3.69 10^6/uL (4.35-5.55)
[2018-06-24 07:00] LABS: INTERNATIONAL RATION (INR) 1.11; PARTIAL THROMBOPLASTIN TIME 37.8 SEC (23.5-35.8); PROTHROMBIN TIME 14.9 SEC (11.4-15.4)
[2018-06-24 07:22] LABS: ALANINE AMINOTRANSFERASE 169 U/L (21-72); ALBUMIN 3.2 g/dL (3.5-5.0); ALKALINE PHOSPHATASE 100 U/L (38-126); ANION GAP 8 (5-19); ASPARTATE AMINO TRANSFERASE 228 U/L (17-59); BILIRUBIN,DIRECT 0.6 mg/dL (0.0-0.4); BILIRUBIN,TOTAL 1.9 mg/dL (0.2-1.3); BLOOD UREA NITROGEN 6 mg/dL (7-20); CARBON DIOXIDE 26 mmol/L (22-30); CHLORIDE 103 mmol/L (98-107); GLUCOSE 84 mg/dL (75-110); PHOSPHORUS 4.3 mg/dL (2.5-4.5); SODIUM 137.4 mmol/L (137-145); TOTAL PROTEIN 6.4 g/dL (6.3-8.2)
[2018-06-24 07:33] LABS: POTASSIUM 3.7 mmol/L (3.6-5.0)
[2018-06-24 07:46] LABS: WHITE BLOOD COUNT 1.8 10^3/uL (4.0-10.5)
[2018-06-24 07:49] LABS: PLATELET COUNT 95 10^3/uL (150-450)
[2018-06-24 07:55] LABS: ABSOLUTE MONOCYTES # (MANUAL) 0.1 10^3/uL (0.1-1.4); ABSOLUTE NEUTROPHILS# (MANUAL) 0.6 10^3/uL (1.7-8.2); BASOPHILS % (MANUAL) 2 % (0-2); EOSINOPHILS % (MANUAL) 2 % (0-6); LYMPHOCYTES % (MANUAL) 56 % (13-45); MONOCYTES % (MANUAL) 4 % (3-13); SEGMENTED NEUTROPHILS % (MAN) 34 % (42-78); TOTAL CELLS COUNTED 50
[2018-06-24 07:57] LABS: ANISOCYTOSIS SLIGHT; PAPPENHEIMER BODIES PRESENT; PLATELET COMMENT DECREASED; POIKILOCYTOSIS SLIGHT; POLYCHROMASIA SLIGHT; TEAR DROP CELLS SLIGHT
[2018-06-24] MEDS: THIAMINE HCL 100 MG TABLET PO SCH (10:05)
[2018-06-24] MEDS: FOLIC ACID/VITAMIN B COMP W-C CAPSULE PO SCH (10:05)
[2018-06-24] MEDS: NORMAL SALINE 1000 ML 1,000 ML IV PRN (10:09)
[2018-06-24 12:23] LABS: PATH REVIEW PATHOLOGIST REVIEWED
[2018-06-24] MEDS: FENTANYL CITRATE INJ/PF 100 MCG/2 ML AMPUL IV PRN ×3 (13:08→22:23)
[2018-06-24] MEDS: NICOTINE 14 MG/24 HR PATCH.TD24 TD SCH (15:18)
--- NOTE | 2018-06-24 15:23 | PSYCHOLOGICAL NOTE ---
Psych Note - Psych Note Date seen by psych provider: 06/24/18 Time seen by psych provider: 13:35 - Chart review 1335. Phone call to attending Hospitalist about medical clearance at 1351. Psych Note: Reason for Consult: Re evaluation, IVC, Alcohol withdrawal/detox, SI with plan to take Tylenol and Alcohol, 3 previous attempts, 1 resulted in [facility] hospitalization Contact Permissions: Unknown Patient is a 37 year old male who presented to the ED on 06/23/18 for alcohol withdrawal, had a case of beer and smoked weed the previous day. He was subsequently admitted to hospitalist services same day for SI, Alcohol dependence, elevated liver enzymes, dehydration, leukopenia and thrombocytopenia. He was petitioned for IVC due to SI with plan to OD on Tylenol and Alcohol, as well as history of 3 attempts. UDS was positive for benzodiazepines and cannabis. Serum alcohol level was 19. AST was 228 H but down from initial 336 and ALT was 169 H but down from initial 215. he had just been admitted 06/06/18 and discharged 06/08/18 for ARF, Alcohol hepatitis and Alcohol Pancreatitis. [facility] protocol is in place. Attending hospitalist stated he believes patient is medically cleared and would be submitting a note indicating such. Medication recommendations made by the psychiatric medical provider, Dr. Lorena MD., includes: Add Effexor 37.5MG daily for depression/to curb craving/for energy Add Busoar 5MG twice a day for anxiety/calming effect/depression/sleep Impression/Plan: If patient is interested in voluntary detox link to [facility] and do direct handoff. He has been wanting detox and SI related to the alcohol use/withdrawal. If will allow direct hand off to [facility] then rescind IVC. Consulted with Dr. Brock regarding the management and care of patient. Attending Hospitalist made aware of recommendations. Will start medications this evening and plan to discharge to [facility] tomorrow (06/25/18) morning.
--- NOTE | 2018-06-24 16:36 | PDOC PROGRESS REPORT ---
Subjective Progress Note for:: 06/24/18 Subjective:: No adverse events overnight. No new complaints. Vital signs been stable. No signs of withdrawal. Appetite is not been great but he does not feel nauseated. He has been drinking liquids without difficulty. Urine output is been good. Reason For Visit: SUICIDAL IDEATION, ALCOHOLIC HEPATITIS Physical Exam Vital Signs: Temp Pulse Resp BP Pulse Ox 98.4 F 66 16 116/75 96 06/24/18 16:00 06/24/18 16:00 06/24/18 16:00 06/24/18 16:00 06/24/18 16:00 Intake & Output 06/23/18 06/24/18 06/25/18 06:59 06:59 06:59 Intake Total 3008.2 240 Balance 3008.2 240 Weight 77.3 kg General appearance: PRESENT: no acute distress, cooperative, disheveled Respiratory exam: PRESENT: clear to auscultation denisse, symmetrical, unlabored. ABSENT: accessory muscle use, prolonged expiratory phas, rales, rhonchi, tachypnea, wheezes Cardiovascular exam: PRESENT: RRR, +S1, +S2 Pulses: PRESENT: normal carotid pulses Vascular exam: PRESENT: normal capillary refill GI/Abdominal exam: PRESENT: normal bowel sounds, soft. ABSENT: distended, guarding, rebound, tenderness Extremities exam: ABSENT: clubbing, pedal edema Musculoskeletal exam: PRESENT: normal inspection. ABSENT: deformity Neurological exam: PRESENT: alert, awake, oriented to person, oriented to place, oriented to time, oriented to situation Psychiatric exam: PRESENT: flat affect Skin exam: PRESENT: dry, warm Results Laboratory Results: 06/24/18 05:45 06/24/18 05:45 06/24/18 06/24/18 05:45 05:45 WBC 1.8 L RBC 3.69 L Hgb 12.5 L Hct 36.7 L MCV 100 H MCH 33.8 H MCHC 34.0 RDW 15.0 H Plt Count 95 L Seg Neutrophils % Not Reportable Lymphocytes % Not Reportable Monocytes % Not Reportable Eosinophils % Not Reportable Basophils % Not Reportable Absolute Neutrophils Not Reportable Absolute Lymphocytes Not Reportable Absolute Monocytes Not Reportable Absolute Eosinophils Not Reportable Absolute Basophils Not Reportable Sodium 137.4 Potassium 3.7 D Chloride 103 Carbon Dioxide 26 Anion Gap 8 BUN 6 L Creatinine 0.81 Est GFR ( Amer) > 60 Est GFR (Non-Af Amer) > 60 Glucose 84 Calcium 9.0 Phosphorus 4.3 Magnesium 1.6 Total Bilirubin 1.9 H AST 228 H ALT 169 H Alkaline Phosphatase 100 Total Protein 6.4 Albumin 3.2 L Assessment and Plan - Diagnosis (1) Alcohol withdrawal Qualifiers: Complication of substance-induced condition: uncomplicated Qualified Code(s): F10.230 - Alcohol dependence with withdrawal, uncomplicated Is this a current diagnosis for this admission?: Yes Plan: Has been relatively asymptomatic. Symptoms are being managed with as needed benzodiazepines. Appetite has returned. Will discontinue his IV fluids and encourage p.o. intake. (2) Suicidal ideation Is this a current diagnosis for this admission?: Yes Plan: He has been seen by behavioral health and they have made medication recommendations which have been implemented. Patient is medically cleared for placement. - Time Time Spent with patient: 15-24 minutes
[2018-06-24] MEDS: BUSPIRONE HCL 10 MG TABLET PO SCH (21:06)
[2018-06-25] MEDS: FENTANYL CITRATE INJ/PF 100 MCG/2 ML AMPUL IV PRN (06:14)
[2018-06-25] MEDS: PANTOPRAZOLE SODIUM 40 MG TABLET.DR PO SCH (06:15)
[2018-06-25] MEDS: DIAZEPAM INJ 10 MG/2 ML DISP.SYRIN IV PRN (06:15)
[2018-06-25] MEDS: HEPARIN SOD (PORCINE) 5,000 UNIT/ML 1 ML SYRINGE SUBCUT SCH ×2 (06:22→13:16)
[2018-06-25 07:18] LABS: ALANINE AMINOTRANSFERASE 152 U/L (21-72); ALBUMIN 3.6 g/dL (3.5-5.0); ALKALINE PHOSPHATASE 105 U/L (38-126); ANION GAP 11 (5-19); ASPARTATE AMINO TRANSFERASE 213 U/L (17-59); BILIRUBIN,DIRECT 0.5 mg/dL (0.0-0.4); BILIRUBIN,TOTAL 1.4 mg/dL (0.2-1.3); BLOOD UREA NITROGEN 6 mg/dL (7-20); CALCIUM 9.4 mg/dL (8.4-10.2); CARBON DIOXIDE 25 mmol/L (22-30); CHLORIDE 102 mmol/L (98-107); GLUCOSE 136 mg/dL (75-110); SODIUM 138.1 mmol/L (137-145)
[2018-06-25] MEDS: THIAMINE HCL 100 MG TABLET PO SCH (09:03)
[2018-06-25] MEDS: BUSPIRONE HCL 10 MG TABLET PO SCH (09:03)
[2018-06-25] MEDS: NICOTINE 14 MG/24 HR PATCH.TD24 TD SCH (09:03)
[2018-06-25] MEDS: FOLIC ACID/VITAMIN B COMP W-C CAPSULE PO SCH (09:03)
[2018-06-25 09:10] LABS: ABSOLUTE LYMPHOCYTES (AUTO) 0.9 10^3/uL (0.5-4.7); ABSOLUTE MONOCYTES (AUTO) 0.1 10^3/uL (0.1-1.4); ABSOLUTE NEUT (AUTO) 0.7 10^3/uL (1.7-8.2); BASOPHILS % (AUTO) 0.8 % (0-2); EOSINOPHILS % (AUTO) 1.7 % (0-6); HEMATOCRIT 37.7 % (37.9-51.0); HEMOGLOBIN 12.9 g/dL (13.5-17.0); LYMPHOCYTES % (AUTO) 48.3 % (13-45); MEAN CORPUSCULAR HEMOGLOBIN 34.1 pg (27.0-33.4); MEAN CORPUSCULAR HGB CONC 34.2 g/dL (32.0-36.0); MEAN CORPUSCULAR VOLUME 100 fl (80-97); MONOCYTES % (AUTO) 7.6 % (3-13); RED BLOOD COUNT 3.77 10^6/uL (4.35-5.55); RED CELL DISTRIBUTION WIDTH 15.1 % (11.5-14.0); SEGMENTED NEUTROPHILS % (AUTO) 41.6 % (42-78); TOTAL CELLS COUNTED % (AUTO) 100 %; WHITE BLOOD COUNT 1.8 10^3/uL (4.0-10.5)
[2018-06-25 09:43] LABS: PLATELET COUNT 98 10^3/uL (150-450)
[2018-06-25 09:47] LABS: ANISOCYTOSIS SLIGHT; OVALOCYTES SLIGHT; PLATELET COMMENT DECREASED
[2018-06-25] MEDS ORDERED: VENLAFAXINE HCL 37.5 MG CAP.SR.24H PO SCH (10:00)
--- NOTE | 2018-06-25 12:16 | PSYCHOLOGICAL NOTE ---
Psych Note - Psych Note Date seen by psych provider: 06/25/18 Time seen by psych provider: 11:06 - In person evaluation from [id number]. Psych Note: Reason for Consult: Re evaluation, IVC, Alcohol withdrawal/detox, SI with plan to take Tylenol and Alcohol, 3 previous attempts, 1 resulted in [facility] Contact Permissions: Unknown Patient is a 37 year old male who presented to the ED on 06/23/18 for alcohol withdrawal, had a case of beer and smoked weed the previous day. He was subsequently admitted to hospitalist services same day for SI, Alcohol dependence, elevated liver enzymes, dehydration, leukopenia and thrombocytopenia. He was petitioned for IVC due to SI with plan to OD on Tylenol and Alcohol, as well as history of 3 attempts. He reported he came to the hospital "for detox help." He reported "I feel a little better today." When asked about SI he said "not so much right now, it comes and goes." He stated he would meet with [facility] in the hospital lobby. He stated he stays at the [facility] and is usually not alone. Patient was alert and oriented to self, person, place, and situation. Mood was more euthymic with congruent affect. He denied current SI/HI. He did not appear to be responding to internal stimuli as evidenced by fair eye contact, staying on topic and interacting appropriately with this clinician. Thought processes were linear/forward thinking/goal directed as evidenced by wanting linkage to [facility] for SA treatment. Conversational speech was within normal limits for rate, tone and prosody. Intellectual abilities are estimated to be average. Insight, judgment and impulse control were fair as evidenced by doing the phone portion of linkage to [facility] and being honest. Diagnosis 291.9 (F10.99) unspecified alcohol related disorder per history provided by patient 296.41 (F31.11) Bipolar I Disorder, Mild, Current,per history provided by patient 292.9 (F11.99) unspecified opiate related disorder per history provided by patient 292.9 (F15.99) unspecified stimulant related disorder; amphetamine per history provided by patient 292.9 (F12.99) unspecified cannabis related disorder per history provided by patient Impression/Plan: Patient is cleared from acute psychiatric services. He said SI was much better, no HI and no observed psychosis. He stated he wants detox and to be linked to [facility] to aid in further detox, other SA programming or linkage to local supports. He agreed to meet with [facility] in the hospital lobby. [facility] Behavioral Health team CM provided the linkage between patient and [facility] then walked patient to the lobby to wait on [facility] worker. Patient provided with the outpatient MH resource sheet. Consulted with Dr. Brock regarding the management and care of patient. Attending Hospitalist made aware of recommendations.
[2018-06-25 12:33] VITALS: BP 138/87
--- NOTE | 2018-06-25 17:50 | PDOC DISCHARGE SUMMARY ---
General - Admit/Disc Date/PCP Admission Date/Primary Care Provider: 06/23/18 14:02 Discharge Date: 06/25/18 - Discharge Diagnosis (1) Alcohol withdrawal Is this a current diagnosis for this admission?: Yes Summary: Resolved. He was showing no signs of withdrawal symptoms at discharge. He received vitamin supplementation. He received PRN benzodiazepines when he was having symptoms. (2) Suicidal ideation Is this a current diagnosis for this admission?: Yes Summary: Was initially IVC. Was seen by behavioral health. They made medication recommendations. On repeat evaluation, this at his symptoms had improved and they recommended resending his IVC. He agreed to voluntarily enter substance abuse treatment. - Additional Information Discharge Diet: Regular Discharge Activity: Activity As Tolerated Prescriptions: Buspirone HCl [Buspar 10 mg Tablet] 5 mg PO Q12 #60 tablet Venlafaxine HCl ER [Effexor Xr 37.5 mg Cap.sr] 37.5 mg PO DAILY #30 cap.sr.24h Home Medications: Buspirone HCl [Buspar 10 mg Tablet] 5 mg PO Q12 #60 tablet 06/25/18 Venlafaxine HCl ER [Effexor Xr 37.5 mg Cap.sr] 37.5 mg PO DAILY #30 cap.sr.24h 06/25/18 History of Present Illness History of Present Illness: AYDEE COLLIER is a 37 year old male who just discharged from [facility] on June 08. He presents today after feeling suicidal last night. He could not sleep. He felt heightened anxiety. His plan was to continually take Tylenol while he was drinking. The emergency room physician reports a case of beer consumed last night. His hospitalization in May was 4 chronic alcohol use with acute kidney injury and alcoholic hepatitis. He is on involuntary commitment at this time. He appears to be resting comfortably. No tremulousness. He is awake alert and oriented and conversing appropriately. He does report feeling cold and he is under several blankets. He reports to this provider that he feels safe now and does not feel suicidal. His appetite is been quite poor. He feels that if he eats he will vomit. He has had nausea and vomiting as well as diarrhea and cramping in his arms and calves. He also reports weakness and poor balance. He was admitted to the hospital service for admission. Psychiatry has seen the patient. Hospital Course Hospital Course: He was brought in and put on suicide precautions. He was initially IVC'd. He was treated in the short-term with vitamin supplementation and was given as needed benzodiazepines for any withdrawal symptoms that he manifested. He wound up being able to eat and drink without difficulty. On repeat evaluation by behavioral health, they recommended rescinding his IVC and provided us with the necessary paperwork to do so. The patient agreed to voluntarily and her substance abuse treatment. Arrangements were made for him to meet mobile crisis on his way out of the hospital, to facilitate his entry into treatment. His labs and examination were reassuring and he was discharged in good condition. Physical Exam Vital Signs: Temp Pulse Resp BP Pulse Ox 98.2 F 59 L 17 138/87 H 100 06/25/18 12:30 06/25/18 12:30 06/25/18 12:30 06/25/18 12:30 06/25/18 12:30 Intake & Output 06/24/18 06/25/18 06/26/18 06:59 06:59 06:59 Intake Total 3008.2 1420 Balance 3008.2 1420 Weight 77.3 kg 77.3 kg General appearance: PRESENT: no acute distress, cooperative, disheveled Respiratory exam: PRESENT: clear to auscultation denisse, symmetrical, unlabored. ABSENT: accessory muscle use, prolonged expiratory phas, rales, rhonchi, tachypnea, wheezes Cardiovascular exam: PRESENT: RRR, +S1, +S2 Pulses: PRESENT: normal carotid pulses Vascular exam: PRESENT: normal capillary refill GI/Abdominal exam: PRESENT: normal bowel sounds, soft. ABSENT: distended, guarding, rebound, tenderness Extremities exam: ABSENT: clubbing, pedal edema Musculoskeletal exam: PRESENT: normal inspection. ABSENT: deformity Neurological exam: PRESENT: alert, awake, oriented to person, oriented to place, oriented to time, oriented to situation Psychiatric exam: PRESENT: flat affect Skin exam: PRESENT: dry, warm Results Laboratory Results: 06/25/18 08:52 06/25/18 06:31 06/25/18 06/25/18 06/25/18 06:31 06:31 08:52 WBC Cancelled 1.8 L RBC Cancelled 3.77 L Hgb Cancelled 12.9 L Hct Cancelled 37.7 L MCV Cancelled 100 H MCH Cancelled 34.1 H MCHC Cancelled 34.2 RDW Cancelled 15.1 H Plt Count Cancelled 98 L Seg Neutrophils % Cancelled 41.6 L Lymphocytes % Cancelled 48.3 H Monocytes % Cancelled 7.6 Eosinophils % Cancelled 1.7 Basophils % Cancelled 0.8 Absolute Neutrophils Cancelled 0.7 L Absolute Lymphocytes Cancelled 0.9 Absolute Monocytes Cancelled 0.1 Absolute Eosinophils Cancelled 0.0 Absolute Basophils Cancelled 0.0 Sodium 138.1 Potassium 4.0 Chloride 102 Carbon Dioxide 25 Anion Gap 11 BUN 6 L Creatinine 0.80 Est GFR ( Amer) > 60 Est GFR (Non-Af Amer) > 60 Glucose 136 H Calcium 9.4 Total Bilirubin 1.4 H AST 213 H ALT 152 H Alkaline Phosphatase 105 Total Protein 7.0 Albumin 3.6 Qualifiers - * PATIENT BEING DISCHARGED WITH ANY OF THE FOLLOWING DIAGNOSIS: No Acute Heart Failure Is this a Heart Failure Patient?: No Plan Time Spent: Greater than 30 Minutes
== END 2018-06-25 13:50 | DRG 897 ==
LOC: ER 11:00 → EH 14:02 → 4S 16:42
PROVIDERS: ADMIT Hospitalist; ATTEND Hospitalist
DX: F10.239 Alcohol dependence with withdrawal, unspecified (principal); R45.851 Suicidal ideations; Y90.0 Blood alcohol level of less than 20 mg/100 ml; F31.9 Bipolar disorder, unspecified; K70.10 Alcoholic hepatitis without ascites; F17.200 Nicotine dependence, unspecified, uncomplicated; Z82.49 Family history of ischemic heart disease and other diseases of the circulatory system; E86.0 Dehydration; D70.8 Other neutropenia; D69.59 Other secondary thrombocytopenia; R94.5 Abnormal results of liver function studies
CPT/HCPCS: 36415; 80053; 80307; 81001; 83690; 83735; 84100; 85025; 85610; 85730; 93005; 93010; 96361; 96365; 96375; 99285; J2060; J2405; J2550; J3010; J3360; J3411; J3490; J7030; J7050

== ENCOUNTER 2018-07-26 18:14 | Emergency (ER) | payer SELFPAY ==
--- NOTE | 2018-07-26 18:28 | ER Document Report ---
ED Medical Screen (RME) - General Chief Complaint: Post Surgical Bleeding Stated Complaint: POST OP COMPLICATIONS Time Seen by Provider: 07/26/18 18:21 Mode of Arrival: Wheelchair Information source: Patient Notes: Patient presents emergency department with reports of bleeding from chest tube site. Reports it was removed today at biting. He reports it was bleeding as he was leaving in a taxi so he went into the emergency department they dressed it again and he was sent back home to the taxi to go home. When he arrived home the site started bleeding again. Patient is in no respiratory distress. Blood- tinged dressing noted. O2 sat 9798% respiratory rate even unlabored. I have greeted and performed a rapid initial assessment of this patient. A comprehensive ED assessment and evaluation of the patient, analysis of test results and completion of the medical decision making process will be conducted by additional ED providers. Dictation of this chart was performed using voice recognition software; therefore, there may be some unintended grammatical errors.. TRAVEL OUTSIDE OF THE [place] IN LAST 30 DAYS: No - Related Data Allergies/Adverse Reactions: No Known Allergies Allergy (Verified 07/26/18 18:15) Past Medical History - Social History Family history: None Renal/ Medical History: Reports: Hx Kidney Stones. Denies: Hx Peritoneal Dialysis GI Medical History: Reports: Hx Hepatitis - Alcohol related hepatitis, Hx Pancreatitis Psychiatric Medical History: Reports: Hx Bipolar Disorder, Hx Depression Infectious Medical History: Reports: Hx Hepatitis - Alcohol related hepatitis - Immunizations Hx Diphtheria, Pertussis, Tetanus Vaccination: Yes History of Influenza Vaccine for 11/2016 - 04/2017 Season: Unknown Physical Exam - Vital signs Vitals: Temp Pulse Resp BP Pulse Ox 99.4 F 77 18 141/95 H 98 07/26/18 18:18 07/26/18 18:18 07/26/18 18:18 07/26/18 18:18 07/26/18 18:18 Course - Vital Signs Vital signs: Temp Pulse Resp BP Pulse Ox 99.4 F 77 18 141/95 H 98 07/26/18 18:18 07/26/18 18:18 07/26/18 18:18 07/26/18 18:18 07/26/18 18:18
--- NOTE | 2018-07-26 18:48 | RADIOLOGY REPORT (SQ) ---
EXAM DESCRIPTION: CHEST 2 VIEWS COMPLETED DATE/TIME: 07/26/2018 6:40 pm REASON FOR STUDY: recent collapsed lung, CT removal, bleeding COMPARISON: None. EXAM PARAMETERS: NUMBER OF VIEWS: two views TECHNIQUE: Digital Frontal and Lateral radiographic views of the chest acquired. RADIATION DOSE: NA LIMITATIONS: none FINDINGS: LUNGS AND PLEURA: No opacities, masses or pneumothorax. No pleural effusion. MEDIASTINUM AND HILAR STRUCTURES: No masses or contour abnormalities. HEART AND VASCULAR STRUCTURES: Heart normal size. No evidence for failure. BONES: No acute findings. Mild blood sideplate and feces in screws traverse the mid to distal right clavicle. HARDWARE: None in the chest. OTHER: Subcutaneous emphysema of the right hemithorax, likely from recent chest tube removal. IMPRESSION: No pneumothorax is visualized. TECHNICAL DOCUMENTATION: JOB ID: [id number] [employer]- All Rights Reserved Reading location - IP/workstation name: [email or web address]
--- NOTE | 2018-07-26 19:56 | ER Document Report ---
ED General - General Chief Complaint: Post Surgical Bleeding Stated Complaint: POST OP COMPLICATIONS Time Seen by Provider: 07/26/18 18:21 Mode of Arrival: Wheelchair Notes: Patient is a 37-year-old male history of polysubstance abuse, presents with bleeding from his right axillary chest wall after he had chest tubes removed earlier today at [facility]. Patient reports that he has had some bleeding saturating through the gauze dressing prompting him to come to the emergency department for assessment. He also notes a throbbing, constant, severe pain to the area worsened by palpation, breathing or movement. Nothing improves the pain. Pain is not new or different from time of discharge from [facility]. Denies fever or constitutional symptoms. Primary concern is bleeding from chest tube site. TRAVEL OUTSIDE OF THE [place] IN LAST 30 DAYS: No - Related Data Allergies/Adverse Reactions: No Known Allergies Allergy (Verified 07/26/18 18:15) Past Medical History - General Information source: Patient - Social History Smoking Status: Current Every Day Smoker Frequency of alcohol use: Heavy Drug Abuse: None Family History: Reviewed & Not Pertinent, Hypertension Patient has suicidal ideation: No Patient has homicidal ideation: No Renal/ Medical History: Reports: Hx Kidney Stones. Denies: Hx Peritoneal Dialysis GI Medical History: Reports: Hx Hepatitis - Alcohol related hepatitis, Hx Pancreatitis Psychiatric Medical History: Reports: Hx Bipolar Disorder, Hx Depression Infectious Medical History: Reports: Hx Hepatitis - Alcohol related hepatitis - Immunizations Hx Diphtheria, Pertussis, Tetanus Vaccination: Yes Review of Systems - Review of Systems Notes: Constitutional: Negative for fever. HENT: Negative for sore throat. Eyes: Negative for visual changes. Cardiovascular: Negative for chest pain. Respiratory: Negative for shortness of breath. Gastrointestinal: Negative for abdominal pain, vomiting or diarrhea. Genitourinary: Negative for dysuria. Musculoskeletal: Negative for back pain. Skin: Positive for bleeding from incision sites in right chest wall Neurological: Negative for headaches, weakness or numbness. 10 point ROS negative except as marked above and in HPI. Physical Exam - Vital signs Vitals: Temp Pulse Resp BP Pulse Ox 99.4 F 77 18 141/95 H 98 07/26/18 18:18 07/26/18 18:18 07/26/18 18:18 07/26/18 18:18 07/26/18 18:18 Interpretation: Normal Notes: PHYSICAL EXAMINATION: GENERAL: Well-appearing, well-nourished and in no acute distress. HEAD: Atraumatic, normocephalic. EYES: Pupils equal round and reactive to light, extraocular movements intact, sclera anicteric, conjunctiva are normal. ENT: nares patent, oropharynx clear without exudates. Moist mucous membranes. NECK: Normal range of motion, supple without lymphadenopathy LUNGS: Breath sounds clear to auscultation bilaterally and equal. No wheezes rales or rhonchi. HEART: Regular rate and rhythm without murmurs ABDOMEN: Soft, nontender, normoactive bowel sounds. No guarding, no rebound. No masses appreciated. EXTREMITIES: Normal range of motion, no pitting or edema. No cyanosis. NEUROLOGICAL: No focal neurological deficits. Moves all extremities spontaneously and on command. PSYCH: Normal mood, normal affect. SKIN: Warm, Dry, normal turgor, no active bleeding from 2 incisional sites in the right axillary chest wall, surrounding bruising noted to the area Course - Re-evaluation Re-evalutation: 07/26/18 19:55 Patient presents with bleeding from a chest tube removal site in the right axillary chest. No active bleeding at time of my evaluation, small clot formed on 1 of the 2 chest tube insertion sites. No fluctuance or induration to the area. Quick clot dressing applied. His initial dressing was removed and he did have a moderate amount of blood although was not fully saturated and was not a concerning amount of bleeding that would indicate need for repeat labs. Chest x-ray is clear, no evidence of recurrent pneumothorax. At this time will discharge with return precautions and follow-up recommendations. Verbal discharge instructions given a the bedside and opportunity for questions given. Patient is in agreement with this plan and has verbalized understanding of return precautions and the need for primary care follow-up in the next 24-72 hours. - Vital Signs Vital signs: Temp Pulse Resp BP Pulse Ox 100.0 F 77 17 130/96 H 100 07/26/18 20:29 07/26/18 20:29 07/26/18 20:29 07/26/18 20:29 07/26/18 20:29 - Diagnostic Test Radiology reviewed: Image reviewed, Reports reviewed Radiology results interpreted by me: 07/26/18 19:56 Chest x-ray: No acute infiltrate or pneumothorax Discharge - Discharge Clinical Impression: Bleeding from wound, Chest wall pain Condition: Good Disposition: HOME, SELF-CARE Additional Instructions: Keep the area dressed. If the dressing saturates you may change it out for plain gauze and tape. You may also apply direct pressure if you notice increased bleeding to the area. Return if you have worsening bleeding, inc reasing pain, difficulty breathing, fever greater than 100.4 F, or have any other symptoms that are worrisome to you.
[2018-07-26 20:30] VITALS: BP 130/96
== END 2018-07-26 20:29 | disposition home or self-care (01) ==
LOC: ER 18:14
DX: R07.89 Other chest pain (principal); L76.22 Postprocedural hemorrhage of skin and subcutaneous tissue following other procedure; F17.200 Nicotine dependence, unspecified, uncomplicated; Z98.890 Other specified postprocedural states
CPT/HCPCS: 71046; 99283